=== PATIENT | female | born 1975 | race Caucasian/White ===

== ENCOUNTER → 2018-10-02 | Outpatient (CLI) | payer OTHER ==
[~2018-10-02] MED LIST: GASTROGRAFIN SOLUTION 30ML (Q9963) As Ordered ONE; ISOVUE-370 76% 100ML VIAL (Q9967) As Ordered ONE
[2018-10-02 14:58] LABS: BASO % 0.2 % (0.0-1.0); EOS # 0.2 10^3/uL (0.0-0.50); HEMATOCRIT 38.8 % (36.0-47.0); HEMOGLOBIN 12.6 g/dl (12.0-15.5); LYMPH # 3.9 10^3/uL (1.5-4.5); LYMPH % 39.1 % (24.0-44.0); MEAN CORPUSCULAR HEMOGLOBIN 28.2 pg (27.0-33.0); MEAN CORPUSCULAR HGB CONC 32.5 g/dl (32.0-36.5); MEAN CORPUSCULAR VOLUME 86.8 fl (80.0-96.0); MONO # 0.9 10^3/uL (0.0-0.8); MONO % 8.6 % (0.0-5.0); NEUTROPHILS % 49.9 % (36.0-66.0); PLATELET COUNT, AUTOMATED 384 10^3/uL (150-450); RED BLOOD COUNT 4.47 10^6/uL (4.00-5.40); WHITE BLOOD COUNT 9.9 10^3/uL (4.0-10.0)
[2018-10-02 15:32] LABS: ALBUMIN 4.2 GM/DL (3.2-5.2); ALT/SGPT 35 U/L (12-78); AMYLASE 44 U/L (25-115); BILIRUBIN,TOTAL 0.4 MG/DL (0.2-1.0); BLOOD UREA NITROGEN 12 MG/DL (7-18); CALCIUM LEVEL 8.5 MG/DL (8.5-10.1); CARBON DIOXIDE LEVEL 31 MEQ/L (21-32); CHLORIDE LEVEL 104 MEQ/L (98-107); CREATININE FOR GFR 1.05 MG/DL (0.55-1.30); GLOMERULAR FILTRATION RATE > 60.0 (>58); GLUCOSE, FASTING 87 MG/DL (70-100); LIPASE 126 U/L (73-393); SODIUM LEVEL 141 MEQ/L (136-145); TOTAL PROTEIN 7.5 GM/DL (6.4-8.2)
--- NOTE | 2018-10-02 15:43 | REP ---
Left upper quadrant sonography: History: Left upper quadrant pain. Findings: Scanning through the left upper quadrant of the abdomen demonstrates normal sized homogeneous spleen with end 9.8 cm greatest dye mention. There is no evidence of ascites. The left kidney is unremarkable measuring 10.3 x 5.0 x 5.8 cm. There is no evidence of hernia or cyst or mass in the area of the patient's reported palpable or painful area. Impression: Negative left upper quadrant sonography. Normal spleen and left kidney. No hernia or other lesion. Electronically Signed by Adams Melara MD 10/02/2018 08:13 P
== END ==
LOC: M LAB 14:29
PROVIDERS: ATTEND Physician Assistant
DX: R10.12 Left upper quadrant pain (principal)

== ENCOUNTER → 2018-10-03 | Outpatient (CLI) | payer OTHER ==
--- NOTE | 2018-10-03 11:58 | REP ---
CT abdomen and pelvis with IV and oral contrast: History: Left upper quadrant pain. CT contrast dose: 100 mL of intravenous Isovue [address] findings: Digital preliminary surgical technician radiograph is unremarkable. The lung bases are clear on axial CT images. The liver and the spleen are normal in size homogeneous in texture. There is an accessory splenule adjacent to the inferior spleen tip. No adrenal lesion is seen on either side. The gallbladder is unremarkable by CT. No pancreatic lesion is seen. The kidneys enhance symmetrically and are morphologically intact. No hydronephrosis is seen. No retroperitoneal mass or adenopathy is observed. Small and large intestinal bowel loops are normal in the abdomen and pelvis. The uterus is surgically absent. Urinary bladder is unremarkable. No adnexal abnormality is seen. A normal appendix is seen retrocecal. No abdominal wall defect is observed. No bony destructive lesion is seen. Impression: The patient is status post hysterectomy. Otherwise negative CT study of the abdomen and pelvis. Electronically Signed by Adams Melara MD 10/03/2018 02:34 P
== END ==
LOC: M RAD 09:28
PROVIDERS: ATTEND Physician Assistant
DX: R10.12 Left upper quadrant pain (principal); Z90.710 Acquired absence of both cervix and uterus
CPT/HCPCS: 74177; Q9963; Q9967

== ENCOUNTER 2019-01-14 06:36 | Emergency (ER) | payer OTHER ==
[~2019-01-14] VITALS: Ht 180.3 cm; Wt 95.5 kg
[2019-01-14] MEDS ORDERED: IBUP-1114 PO (07:44)
[2019-01-14] MEDS ORDERED: CEFD300CAP PO (07:45)
[2019-01-14 07:50] LABS: APPEARANCE, URINE HAZY (CLEAR); BACTERIA, URINE AUTO NEGATIVE (NEGATIVE); BILIRUBIN, URINE AUTO NEGATIVE (NEGATIVE); BLOOD, URINE BLOOD NEGATIVE (NEGATIVE); COLOR, URINE YELLOW (YELLOW); GLUCOSE, URINE (UA) AUTO NEGATIVE (NEGATIVE); KETONE, URINE AUTO NEGATIVE (NEGATIVE); LEUKOCYTE ESTERASE, URINE AUTO NEGATIVE (NEGATIVE); MUCUS, URINE SMALL (NEGATIVE); NITRITE, URINE AUTO NEGATIVE (NEGATIVE); PROTEIN, URINE AUTO NEGATIVE (NEGATIVE); RBC, URINE AUTO 1 /HPF (0-3); SPECIFIC GRAVITY URINE AUTO 1.021 (1.002-1.035); SQUAMOUS EPITHELIAL CELL UR AU 0 /HPF (0-6); UROBILINOGEN, URINE AUTO 0.2 mg/dL (0.0-2.0); WBC, URINE AUTO 0 /HPF (0-3)
[2019-01-14 08:21] LABS: INFLUENZA A AMPLIFICATION NEGATIVE (NEGATIVE); INFLUENZA B AMPLIFICATION NEGATIVE (NEGATIVE)
--- NOTE | 2019-01-14 09:00 | REP ---
Clinical: Cough . Comparison: None . Technique: PA and lateral. Findings: The mediastinum and cardiac silhouette are normal. The lung donahue are clear and without acute consolidation, effusion, or pneumothorax. The skeletal structures are intact and normal. Impression: 1. No acute cardiopulmonary process. Electronically Signed by João Kumar MD 01/14/2019 08:52 A
[2019-01-14] MEDS ORDERED: TESS100C PO (09:26)
[2019-01-14 09:49] VITALS: BP 118/63
== END 2019-01-14 09:53 | disposition home or self-care (01) ==
LOC: M ED 06:36
DX: J06.9 Acute upper respiratory infection, unspecified (principal); Z79.2 Long term (current) use of antibiotics; Z87.01 Personal history of pneumonia (recurrent); Z87.09 Personal history of other diseases of the respiratory system; Z98.890 Other specified postprocedural states; Z88.0 Allergy status to penicillin; Z88.1 Allergy status to other antibiotic agents; Z88.8 Allergy status to other drugs, medicaments and biological substances; Z82.5 Family history of asthma and other chronic lower respiratory diseases

== ENCOUNTER 2021-04-28 13:51 | Emergency (ER) | payer OTHER ==
[~2021-04-28] VITALS: Ht 180.3 cm; Wt 94.8 kg
[2021-04-28 13:51] VITALS: BP 117/70
[~2021-04-28 13:51] MED LIST changes: +CEFD300CAP PO; -GASTROGRAFIN SOLUTION 30ML (Q9963) As Ordered ONE; +IBUP-1114 PO; -ISOVUE-370 76% 100ML VIAL (Q9967) As Ordered ONE; +TESS100C PO
[2021-04-28] MEDS ORDERED: FLON27.5 NARES (14:07)
[2021-04-28] MEDS ORDERED: OZEM2INJ SC (14:07)
[2021-04-28] MEDS ORDERED: LEVO-95 PO (14:07)
[2021-04-28] MEDS ORDERED: DULO1CAP4 PO (14:07)
[2021-04-28] MEDS ORDERED: DULO1CAP6 PO (14:07)
[2021-04-28] MEDS ORDERED: VITATAB74 PO (14:07)
[2021-04-28] MEDS ORDERED: ALLE180T33 PO (14:07)
== END 2021-04-28 20:00 | disposition left against medical advice (07) ==
LOC: M ED 13:51
DX: Z53.29 Procedure and treatment not carried out because of patient's decision for other reasons (principal)

== ENCOUNTER → 2021-06-23 | Outpatient (REF) | payer OTHER ==
[~2021-06-23] MED LIST changes: +ALLE180T33 PO; +DULO1CAP4 PO; +DULO1CAP6 PO; +FLON27.5 NARES; +LEVO-95 PO; +OZEM2INJ SC; +VITATAB74 PO
== END ==
LOC: M LAB REF 18:05
PROVIDERS: ATTEND Family Medicine
DX: R30.0 Dysuria (principal)

== ENCOUNTER → 2021-07-21 | Outpatient (REF) | payer OTHER | LOC: M LAB REF 17:07 | PROVIDERS: ATTEND Physician Assistant | DX: N39.0 Urinary tract infection, site not specified (principal) ==

== ENCOUNTER → 2021-08-31 | Outpatient (CLI) | payer OTHER | LOC: M LABSMTC 10:06 | PROVIDERS: ATTEND Anesthesiology | DX: Z01.818 Encounter for other preprocedural examination (principal); Z11.52 Encounter for screening for COVID-19 ==

== ENCOUNTER 2021-09-03 06:41 | Day surgery (SDC) | payer OTHER ==
[~2021-09-03] VITALS: Ht 180.3 cm; Wt 86.2 kg
[~2021-09-03 06:41] MED LIST changes: +NS 1,000 ML IV ONE
[2021-09-03] MEDS ORDERED: fentaNYL 100 MCG/2 ML INJECTION (J3010) As Ordered ONE (06:45)
--- OUTSIDE RECORDS SUMMARY | 2021-09-03 06:45 | CCD | Continuity of Care Document ---
Author Marquita Julian Organization Unknown [place] [address] Phone [phone] Care Team Providers Care Tobacco Flavorer Name Role Phone Maritza Delatorre D.O. AUTM Sumeet Chao M.D. AUTM [phone] Problems Active Problems Provider Date Vitamin D deficiency AXEL Ambrocio Onset: 05/20/2021 Type 2 diabetes mellitus AXEL Ambrocio Onset: 05/20/20 Non-celiac gluten sensitivity AXEL Ambrocio Onset: Generalized anxiety disorder AXEL Ambrocio Onset: 05/19 Hypothyroidism AXEL Ambrocio Onset: 06/16/2020 Social History Type Date Description Comments Sex Unknown ETOH Use Drinks 2 Alcoholic Beverages Per Week Tobacco Use Start: Unknown Patient has never smoked Recreational Drug Use Denies Drug Use Smoking Status Reviewed: 06/23/21 Patient has never smoked Exercise Type/Frequency Walks daily Sun Exposure Uses sunscreen Seat Belt/Car Seat Always uses seat belt Allergies, Adverse Reactions, Alerts Active Allergies Criticality Reaction | Severity Comments Date Penicillin Unable to assess criticality Hives 06/13/2020 Cipro Unable to assess criticality Hives 06/13/2020 Doxycycline Unable to assess criticality Hives 06/13/2020 Latex Unable to assess criticality Contact dermatitis 06/13/2020 Gluten Unable to assess criticality joint pain, stiffness,spa sms 06/16/2020 Soy Unable to assess criticality 06/16/2020 Medications Active Medications SIG Qnty Indications Ordering Provide r Date Bactrim DS 800-160mg Tablets take one tablet by mouth every 12 hours for ten days 20tabs N39.0 Lori Santana.O. 07/21/2021 Duloxetine HCL 60mg Caps DR Bear Take One Capsule By Mouth Every Day 30caps F41.1 Lori Santana.O. 06/02/2021 Ozempic (0.25 Or 0.5 MG/Dose) 2mg/1.5ML Solution Pen-Inject 0.25 mg injection into subcutaneous tiss ue once a week for four weeks and then increase to 0.5 mg 4.5ml E11.9 Lori Walsh.OJulien 03/10/2021 Novofine 32G X 6 mm Misc to be used with ozepmic pen once a week 100units E11.9 Lori Santana. O. 03/10/2021 Freestyle [place] Lite W/Device Ki t one unit for routine monitoring of fasting blood sugar every morning 1units E11.9 Cruz SantanaOJulien 02/17/2021 Freestyle Test Strips freestyle test strips to be used with free style glucometer daily - fasting 90units Cruz SantanaOJulien 02/17/2021 Lancet Device Misc use in combination with glucometer each morning 90units Maritza vazquez D.O. 02/17/2021 Ferosul 325(65Fe) mg Tablets Take One Tablet By Mouth Every Day With Food 90tabs Cruz AlmeidaOJulien 01/01/2021 Levothyroxine Sodium 150mcg Capsul es 1 by mouth every morning 90caps Lori Santana.O. 0 12/01/2020 Vitamin D (Ergocalciferol) 1.25mg (32102 Ut) Capsules 1 capsule weekly for 12 weeks 12caps Cruz ButterfieldO. 07/01/[address] Bear 1 by mouth every day 30caps Cruz SantanaO. 06/16 Vitamin D3 125mcg (5000 Ut) Capsul es 1 by mouth every day Unknown Vitamin C 1000mg Tablets 1 by mouth every day Unknown Rae Allergy 60mg Tablets 1 by mouth every day Unknown Probiotic [id number] Capsules Unknown Flonase Allergy Relief 50mcg/Act Suspension two sprays in each nostril once daily Unk nown History Medications Macrobid 100mg Capsules take one capsule by mouth twice a day for 7 days 14caps R30.0 Maritza yip DJulienOJulien 06/23/2021 - 07/21/2021 Phenazopyridine HCL 200mg Tablets take 1 tablet by mouth every 8 hours for 3 days as directed 10tabs R30.0 Cruz WalshOJulien 06/23/2021 - 07/21/2021 Metformin HCL ER 500mg Tablets ER 24HR 2 tablet by mouth every day with your largest meal of the day 180tabs Maritza Delatorre D.O. 02/17/2021 - 02/17/2021 Metformin HCL ER 500mg Tablets ER 24HR 2 tablet by mouth twice a day with food 360tabs Cruz AbrahamOJulien 02/17/2021 - 03/10/2021 Duloxetine HCL 20mg Caps DR Part 1 capsule with 60 mg capsule by mouth every day 90caps F41.1 Cruz AbrahamOJulien 02/16/2021 - 06/02/2021 Immunizations Description No Information Available Vital Signs Date Vital Result Comment 07/21/2021 11:22am BP Systolic 130 mmHg BP Diastolic 78 mmHg Height 69.6 inches 5'9.60" Weight 202.12 lb BMI (Body Mass Index) 29.3 kg/m2 Heart Rate 104 /min Respiratory Rate 12 /min Body Temperature 98.5 F O2 % BldC Oximetry 98 % [place] Body Weight 145 lb 06/23/2021 3:34pm BP Systolic 122 mmHg BP Diastolic 82 mmHg Height 69.6 inches 5'9.60" Weight 202.00 lb BMI (Body Mass Index) 29.3 kg/m2 Heart Rate 97 /min Respiratory Rate 18 /min Body Temperature 98.7 F O2 % BldC Oximetry 987 % [place] Body Weight 145 lb Results Test Acquired Date Facility Test Result H/L Range Note Inhouse Ua 07/21/2021 Inhouse Inhouse Leukocytes + Inhouse Glucose u unable to read Laboratory test finding 07/21/[address] [address] [phone] Urine Culture FULL REPORT IN L <SEE NOTE> Normal 1 Inhouse Ua 06/23/2021 Inhouse Inhouse Leukocytes ++ Inhouse Nitrite negative Inhouse Urobilinogen + Inhouse Protein + Inhouse PH 6 Inhouse Hemoglobin +++ Inhouse Specific [place] 1.025 Inhouse Ketones + Inhouse Bilirubin negative Inhouse Glucose negative Laboratory test finding 06/23/[address] [address] [phone] Urine Culture FULL REPORT IN L <SEE NOTE> Normal 2 1 FULL REPORT IN LAB NOTES ([facility]). NO GROWTH 2 FULL REPORT IN LAB NOTES ([facility]). ORGANISM 1: ESCHERICHIA COLI COLONY COUNT 50,000 ORGANISM 1: ESCHERICHIA COLI ESCHERICHIA COLI: REACTION TRIMETHOPRIM/SULFAMETHOXAZOLE IV 160mg TMP & 800mg SMXq6h <=20 S TRIMETHOPRIM/SULFAMETHOXAZOLE PO Bactrim DS Bid <=20 S AMPICILLIN IV 500mg q6h 4 S AMPICILLIN PO 500mg q6h fasting 4 S GENTAMICIN IV 80mg q8h <=1 S NITROFURANTOIN PO 100mg BID <=16 S CEFAZOLIN IV 1gm q8h <=4 S LEVOFLOXACIN IV 500mg qd <=0.12 S LEVOFLOXACIN PO 250mg qd <=0.12 S LEVOFLOXACIN PO 500mg qd <=0.12 S TOBRAMYCIN IV 80mg q8h <=1 S CEFTRIAXONE IV 1gm q24h <=1 S CEFTAZIDIME IV 1gm q8h <=1 S AMPICILLIN/SULBACTAM IV 1.5g q6h <=2 S PIPERACILLIN/TAZOBACTAM IV 2.25 gm q6h <=4 S AZTREONAM IV 1gm q8h <=1 S ERTAPENEM IV 1gm qd <=0.5 S MEROPENEM IV 1 gm q8h <=0.25 S MEROPENEM IV 500 mg q8h <=0.25 S TIGECYCLINE IV 50mg q12h <=0.5 S CEFEPIME IV 1 gm q12h <=1 S CEFEPIME IV 2 gm q12h <=1 S EXTD BRD SPCTRM BETA LACTAMASE IV NEGATIVE FOR ESBL Procedures Date Code Description Status 07/21/2021 65665 Office/Outpatient Established Lo w MDM 20-29 Min Completed 06/23/2021 78796 Office/Outpatient Established Lo w MDM 20-29 Min Completed 05/20/2021 11170 Office/Outpatient Established Mo d MDM 30-39 Min Completed 03/10/2021 99481 Office/Outpatient Established Lo w MDM 20-29 Min Completed 02/16/2021 67894 Office/Outpatient Established Mo d MDM 30-39 Min Completed Medical Devices Description No Information Available Encounters Type Date Location Provider Dx Diagnosis Office Visit 07/21/2021 11:20a Family Medicine [facility] AXEL Ambrocio N39.0 Urinary tract infection, sit e not specified Office Visit 06/23/2021 3:30p Family Medicine [facility] Maritza Delatorre D.OJulien R30.0 Dysuria Office Visit 05/20/2021 8:45a Family Medicine [facility] AXEL Ambrocio E11.9 Type 2 diabetes mellitus wit hout complications E03.9 Hypothyroidism, unspecified F41.1 Generalized anxiety disorder E55.9 Vitamin D deficiency, unspec ified K90.41 Non-celiac gluten sensitivit y Z86.010 Personal history of colonic polyps Office Visit 03/10/2021 1:30p Family Medicine [facility] AXEL Ambrocio E11.9 Type 2 diabetes mellitus wit hout complications Office Visit 02/16/2021 4:00p [facility] AXEL Ambrocio E03.9 Hypothyroidism, unspecified R73.01 Impaired fasting glucose F41.1 Generalized anxiety disorder E55.9 Vitamin D deficiency, unspec ified K90.41 Non-celiac gluten sensitivit y Assessments Date Code Description Provider 07/21/2021 N39.0 Urinary tract infection, site no t specified AXEL Ambrocio 06/23/2021 R30.0 Dysuria Maritza yip D.OJulien 05/20/2021 E11.9 Type 2 diabetes mellitus without complications AXEL Ambrocio 05/20/2021 E03.9 Hypothyroidism, unspecified AXEL Lopez 05/20/2021 F41.1 Generalized anxiety disorder AXEL Bean 05/20/2021 E55.9 Vitamin D deficiency, unspecifie d AXEL Ambrocio 05/20/2021 K90.41 Non-celiac gluten sensitivity AXEL Burgess 05/20/2021 Z86.010 Personal history of colonic poly ps AXEL Ambrocio 03/10/2021 E11.9 Type 2 diabetes mellitus without complications AXEL Ambrocio 02/16/2021 E03.9 Hypothyroidism, unspecified AXEL Lopez 02/16/2021 R73.01 Impaired fasting glucose AXEL Ambrocio 02/16/2021 F41.1 Generalized anxiety disorder AXEL Bean 02/16/2021 E55.9 Vitamin D deficiency, unspecifie d AXEL Ambrocio 02/16/2021 K90.41 Non-celiac gluten sensitivity AXEL Burgess Plan of Treatment Future Appointment(s):* 08/24/2021 8:00 am - AXEL Ambrocio at [facility] Functional Status Description No Information Available Mental Status Description No Information Available Referrals Refer to Dr Reason for Referral Status Appt Date Sumeet Chao M.D. prior colonoscopy in 2011 hx of colonic polyps. Please re evaluate Closed 6 [facility] [address] [place] [address] [id number] [phone]
--- OUTSIDE RECORDS SUMMARY | 2021-09-03 06:45 | CCD | Continuity of Care Document ---
Author Marquita Julian Organization [place] [address] Phone [phone] Care Team Providers Care Residential Housekeeper Name Role Phone Maritza Delatorre D.O. AUTM Sumeet Chao M.D. AUTM [phone] Problems Active Problems Provider Date Vitamin D [...] 100units E11.9 Lori Santana. O. 03/10/2021 Freestyle [place] Lite W/Device Ki t one unit for [...] Santana.O. 0 12/01/2020 Vitamin D (Ergocalciferol) 1.25mg (87299 Ut) Capsules 1 capsule weekly for 12 weeks 12caps Cruz ButterfieldO. 07/01/[address] Bear 1 by mouth every day 30caps Cruz SantanaO. 06/16 Vitamin D3 125mcg (5000 Ut) Capsul es 1 by mouth every day Unknown Vitamin C 1000mg Tablets 1 by mouth every day Unknown Rae Allergy 60mg Tablets 1 by mouth every day Unknown Probiotic [id number] Capsules Unknown Flonase Allergy Relief 50mcg/Act Suspension two sprays in each nostril once daily Unk nown History Medications Macrobid 100mg Capsules take one capsule by mouth twice a day for 7 days 14caps R30.0 Maritza yip DJulienOJulien 06/23/2021 - 07/21/2021 Phenazopyridine HCL 200mg Tablets take 1 tablet by mouth every 8 hours for 3 days as directed 10tabs R30.0 Cruz WalhsOJulien 06/23/2021 - 07/21/2021 Metformin HCL ER 500mg [...] F O2 % BldC Oximetry 98 % [place] Body Weight 145 lb 06/23/2021 3:34pm BP Systolic 122 mmHg BP Diastolic 82 mmHg Height 69.6 inches 5'9.60" Weight 202.00 lb BMI (Body Mass Index) 29.3 kg/m2 Heart Rate 97 /min Respiratory Rate 18 /min Body Temperature 98.7 F O2 % BldC Oximetry 987 % [place] Body Weight 145 lb Results Test Acquired Date Facility Test Result H/L Range Note Inhouse Ua 07/21/2021 Inhouse Inhouse Leukocytes + Inhouse Glucose u unable to read Laboratory test finding 07/21/[address] [address] [phone] Urine Culture FULL REPORT IN L <SEE NOTE> Normal 1 Inhouse Ua 06/23/2021 Inhouse Inhouse Leukocytes ++ Inhouse Nitrite negative Inhouse Urobilinogen + Inhouse Protein + Inhouse PH 6 Inhouse Hemoglobin +++ Inhouse Specific [place] 1.025 Inhouse Ketones + Inhouse Bilirubin negative Inhouse Glucose negative Laboratory test finding 06/23/[address] [address] [phone] Urine Culture FULL REPORT IN L <SEE [...] ESBL Procedures Date Code Description Status 07/21/2021 64184 Office/Outpatient Established Lo w MDM 20-29 Min Completed 06/23/2021 95893 Office/Outpatient Established Lo w MDM 20-29 Min Completed 05/20/2021 41978 Office/Outpatient Established Mo d MDM 30-39 Min Completed 03/10/2021 24468 Office/Outpatient Established Lo w MDM 20-29 Min Completed 02/16/2021 72933 Office/Outpatient Established Mo d MDM 30-39 Min Completed Medical Devices Description No Information Available Encounters Type Date Location Provider Dx Diagnosis Office Visit 07/21/2021 11:20a Family Medicine [facility] AXEL Ambrocio N39.0 Urinary tract infection, sit e not specified Office Visit 06/23/2021 3:30p Family Medicine [facility] Maritza Delatorre D.OJulien R30.0 Dysuria Office Visit 05/20/2021 8:45a Family Medicine [facility] AXEL Ambrocio E11.9 Type 2 diabetes mellitus wit hout complications E03.9 Hypothyroidism, unspecified F41.1 Generalized anxiety disorder E55.9 Vitamin D deficiency, unspec ified K90.41 Non-celiac gluten sensitivit y Z86.010 Personal history of colonic polyps Office Visit 03/10/2021 1:30p Family Medicine [facility] AXEL Ambrocio E11.9 Type 2 diabetes mellitus wit hout complications Office Visit 02/16/2021 4:00p [facility] AXEL Ambrocio E03.9 Hypothyroidism, unspecified R73.01 Impaired [...] 08/24/2021 8:00 am - AXEL Ambrocio at [facility] Functional Status Description No Information Available Mental Status Description No Information Available Referrals Refer to Dr Reason for Referral Status Appt Date Sumeet Chao M.D. prior colonoscopy in 2011 hx of colonic polyps. Please re evaluate Closed 6 [facility] [address] [place] [address] [id number] [phone]
--- OUTSIDE RECORDS SUMMARY | 2021-09-03 06:45 | CCD | Continuity of Care Document ---
Author Author Marquita LEA F.N.P. Organization Unknown Address [address], [address] [place] [address] Phone [phone] Care Team Providers Care Vegetable Trimmer Name Role Phone Harpal Leonard MD AUTM [phone] Problems Description No Information Available Social History Type Date Description Comments Sex Unknown ETOH Use Social Drinker Tobacco Use Start: Unknown Patient has never smoked Sun Exposure moderate amount of sun exposure Sun Exposure Tanning bed - Has used in past. No longer using. Sun Exposure Has never experienced blistering from sunburns Sun Exposure Uses > 30 SPF Allergies, Adverse Reactions, Alerts Active Allergies Criticality Reaction | Severity Comments Date Penicillin V Unable to assess criticality 03/24/2020 sulfa Unable to assess criticality 03/24/2020 Doxycycline Unable to assess criticality 03/24/2020 Medications Active Medications SIG Qnty Indications Ordering Provide r Date Cymbalta Unknown Synthroid Unknown Vitamin D Unknown Rae Allergy Unknown 0 Ozempic (0.25 Or 0.5 MG/Dose) Unknow n Immunizations Description No Information Available Vital Signs Date Vital Result Comment 06/16/2021 8:49am Weight 198.00 lb Respiratory Rate 15 /min Height 71 inches 5'11" BMI (Body Mass Index) 27.6 kg/m2 09/15/2020 1:04pm Heart Rate 78 /min Body Temperature 96.8 F Respiratory Rate 18 /min Results Description No Information Available Procedures Date Code Description Status 06/16/2021 26177 Office/Outpatient Established Mo d MDM 30-39 Min Completed Medical Devices Description No Information Available Encounters Type Date Location Provider Dx Diagnosis Office Visit 06/16/2021 8:45a Main Office Emily Lea, F.N.P. D22.5 Melanocytic nevi of trunk D22.30 Melanocytic nevi of unspecif ied part of face D22.71 Melanocytic nevi of right lo wer limb, including hip D22.72 Melanocytic nevi of left low er limb, including hip D22.61 Melanocytic nevi of right up per limb, including shoulder D22.62 Melanocytic nevi of left upp er limb, including shoulder L82.1 Other seborrheic keratosis Z12.83 Encounter for screening for malignant neoplasm of skin Assessments Date Code Description Provider 06/16/2021 D22.5 Melanocytic nevi of trunk Nomi Lea, F.N.P. 06/16/2021 D22.30 Melanocytic nevi of unspecified part of face Emily Lea, F.N.P. 06/16/2021 D22.71 Melanocytic nevi of right lower limb, including hip Emily Lea, F.N.P. 06/16/2021 D22.72 Melanocytic nevi of left lower l imb, including hip Emily Gordon'debo, F.N.P. 06/16/2021 D22.61 Melanocytic nevi of right upper limb, including shoulder Emily Gordon'debo, F.N.P. 06/16/2021 D22.62 Melanocytic nevi of left upper l imb, including shoulder Emily Lea, F.N.P. 06/16/2021 L82.1 Other seborrheic keratosis Allie Lea, F.N.P. 06/16/2021 Z12.83 Encounter for screening for james gnant neoplasm of skin Emily Lea, F.N.P. Plan of Treatment Future Appointment(s):* 06/14/2022 9:15 am - Emily Lea, F.N.P. at Main Office 06/16/2021 - Emily Lea, F.N.P.* D22.5 Melanocytic nevi of trunk* Comments:* Nevi on trunk appear healthy. Monitor for changes. Salas angiomas - reassurance. Sun protection and sunscreen use discussed. Literature given on how to perform monthly self skin exam. Should any moles change in shape or color, itch, bleed or burn, pt will contact office for evaluation sooner than their interval appointment. * D22.30 Melanocytic nevi of unspecified part of face* Comments:* Nevi located on face appear healthy. Monitor for changes. * D22.71 Melanocytic nevi of right lower limb, including hip* Comments:* Nevi located on R leg appear healthy. Monitor for changes. Should any moles change in shape or color, itch, bleed or burn patient instructed to call office for evaluation sooner than their interval appointment. * D22.72 Melanocytic nevi of left lower limb, including hip* Comments:* Nevi L leg appear healthy. Monitor for changes. Should any moles change in shape or color, itch, bleed or burn, patient instructed to contact office for ev aluation sooner than their interval appointment. * D22.61 Melanocytic nevi of right upper limb, including shoulder* Comments:* Nevi located on R arm appears healthy. Monitor for changes. Should any moles change in shape or color, itch, bleed or burn patient instructed to call office for evaluation sooner than their interval appointment. * D22.62 Melanocytic nevi of left upper limb, including shoulder* Comments:* Nevi located on L arm appears healthy. Monitor for changes. Should any moles change in shape or color, itch, bleed or burn patient instructed to call office for evaluation sooner than their interval appointment. * L82.1 Other seborrheic keratosis* Comments:* ReassuranceDiscussed seborrheic keratoses are benign warty growths that appear with age and more most likely will appear over time. Discussed if ever becomes irritated to call for a removal appointment. * Z12.83 Encounter for screening for malignant neoplasm of skin* Comments:* See above. * Follow up:* Yearly/PRN - [facility] Functional Status Description No Information Available Mental Status Description No Information Available Referrals Description No Information Available
[2021-09-03] MEDS ORDERED: LIDOCAINE 2% INJ 100 MG/5 ML SYRINGE As Ordered ONE (06:46)
[2021-09-03] MEDS ORDERED: propofoL 200 MG/20 ML VIAL As Ordered ONE (06:46)
--- OUTSIDE RECORDS SUMMARY | 2021-09-03 06:46 | CCD | Continuity of Care Document ---
Author Author Marquita DELATORRE Organization Unknown Address [email or web address] [place] [address] Phone [phone] Care Team Providers Care Curriculum Specialist Name Role Phone Maritza Delatorre D.O. AUTM Sumeet Chao M.D. AUTM [phone] Problems Active Problems Provider Date Vitamin D deficiency AXEL Ambrocio Onset: 05/20/2021 Type 2 diabetes mellitus AXEL Ambrocio Onset: 05/20/20 Non-celiac gluten sensitivity AXEL Ambrocio Onset: Generalized anxiety disorder AXEL mAbrocio Onset: 05/19 Hypothyroidism AXEL Ambrocio Onset: 06/16/2020 [...] SIG Qnty Indications Ordering Provide r Date Phenazopyridine HCL 200mg Tablets take 1 tablet by mouth every 8 hours for 3 days as directed 10tabs R30.0 Lori Walsh.OJulien 06/23/2021 Macrobid 100mg Capsules take one capsule by mouth twice a day for 7 days 14caps R30.0 Cruz DoradoOJulien 06/23/2021 Duloxetine HCL 60mg Caps DR Bear Take One Capsule By Mouth Every Day 30caps F41.1 Lori Santana.O. 06/02/2021 Ozempic (0.25 Or 0.5 MG/Dose) 2mg/1.5ML Solution Pen-Inject 0.25 mg injection into subcutaneous tiss ue once a week for four weeks and then increase to 0.5 mg 4.5ml E11.9 Cruz WalshOJulien 03/10/2021 Novofine 32G X 6 mm Misc to be used with ozepmic pen once a week 100units E11.9 Cruz Santana OJulien 03/10/2021 Freestyle [place] Lite W/Device Ki t one unit for routine monitoring of fasting blood sugar every morning 1units E11.9 Cruz SantanaOJulien 02/17/2021 Freestyle Test Strips freestyle test strips to be used with free style glucometer daily - fasting 90units Lori Santana.OJulien 02/17/2021 Lancet Device Misc use in combination with glucometer each morning 90units Cruz GreenOJulien 02/17/2021 Ferosul 325(65Fe) mg Tablets Take One Tablet By Mouth Every Day With Food 90tabs Lori Almeida.OJulien 01/01/2021 Levothyroxine Sodium 150mcg Capsul es 1 by mouth every morning 90caps Maritza Delatorre D.O. 0 12/01/2020 Vitamin D (Ergocalciferol) 1.25mg (38505 Ut) Capsules 1 capsule weekly for 12 weeks 12caps Cruz ButterfieldOJulien 07/01/[address] Bear 1 by mouth every day 30caps Cruz SantanaOJulien 06/16 Vitamin D3 125mcg (5000 Ut) Capsul es 1 by mouth every day Unknown Vitamin C 1000mg Tablets 1 by mouth every day Unknown Rae Allergy 60mg Tablets 1 by mouth every day Unknown Probiotic [id number] Capsules Unknown Flonase Allergy Relief 50mcg/Act Suspension two sprays in each nostril once daily Unk nown History Medications Metformin HCL ER 500mg Tablets ER 24HR 2 tablet by mouth every day with your largest meal of the day 180tabs Maritza Delatorre D.O. 02/17/2021 - 02/17/2021 Metformin HCL ER 500mg Tablets ER 24HR 2 tablet by mouth twice a day with food 360tabs Maritza Toure D.O. 02/17/2021 - 03/10/2021 Duloxetine HCL 20mg Mary Bear 1 capsule with 60 mg capsule by mouth every day 90caps F41.1 Maritza Touer D.O. 02/16/2021 - 06/02/2021 Immunizations Description No Information Available Vital Signs Date Vital Result Comment 06/23/2021 3:34pm BP Systolic 122 mmHg BP Diastolic 82 mmHg Height 69.6 inches 5'9.60" Weight 202.00 lb BMI (Body Mass Index) 29.3 kg/m2 Heart Rate 97 /min Respiratory Rate 18 /min Body Temperature 98.7 F O2 % BldC Oximetry 987 % [place] Body Weight 145 lb 05/20/2021 8:47am BP Systolic 110 mmHg BP Diastolic 60 mmHg Height 69.6 inches 5'9.60" Weight 206.00 lb BMI (Body Mass Index) 29.9 kg/m2 Heart Rate 67 /min Respiratory Rate 14 /min Body Temperature 97.0 F O2 % BldC Oximetry 98 % [place] Body Weight 145 lb Results Test Acquired Date Facility Test Result H/L Range Note Inhouse Ua 06/23/2021 Inhouse Inhouse Leukocytes ++ Inhouse Nitrite negative Inhouse Urobilinogen + Inhouse Protein + Inhouse PH 6 Inhouse Hemoglobin +++ Inhouse Specific [place] 1.025 Inhouse Ketones + Inhouse Bilirubin negative Inhouse Glucose negative Laboratory test finding 06/23/2021 [place] [address] [phone] Urine Culture FULL REPORT IN L <SEE NOTE> Normal 1 1 FULL REPORT IN LAB NOTES (eC [...] FOR ESBL Procedures Date Code Description Status 06/23/2021 04063 Office/Outpatient Established Lo w MDM 20-29 Min Completed 05/20/2021 46187 Office/Outpatient Established Mo d MDM 30-39 Min Completed 03/10/2021 95517 Office/Outpatient Established Lo w MDM 20-29 Min Completed 02/16/2021 58584 Office/Outpatient Established Mo d MDM 30-39 Min Completed Medical Devices Description No Information Available Encounters Type Date Location Provider Dx Diagnosis Office Visit 06/23/2021 3:30p [facility] Maritza Delatorre D.O. R30.0 Dysuria Office Visit 05/20/2021 8:45a [facility] AXEL Ambrocio E11.9 Type 2 diabetes mellitus wit hout complications E03.9 Hypothyroidism, unspecified F41.1 Generalized anxiety disorder E55.9 Vitamin D deficiency, unspec ified K90.41 Non-celiac gluten sensitivit y Z86.010 Personal history of colonic polyps Office Visit 03/10/2021 1:30p [facility] AXEL Ambrocio E11.9 Type 2 diabetes mellitus wit hout complications Office Visit 02/16/2021 4:00p [facility] AXEL Ambrocio E03.9 Hypothyroidism, unspecified R73.01 Impaired fasting glucose F41.1 Generalized anxiety disorder E55.9 Vitamin D deficiency, unspec ified K90.41 Non-celiac gluten sensitivit y Assessments Date Code Description Provider 06/23/2021 R30.0 Dysuria Maritza yip D.O. 05/20/2021 E11.9 Type 2 diabetes mellitus without complications AXEL Ambrocio 05/20/2021 E03.9 Hypothyroidism, unspecified AXEL Lopez 05/20/2021 F41.1 Generalized anxiety disorder AXEL Bean 05/20/2021 E55.9 Vitamin D deficiency, unspecifie d AXEL Ambrocio 05/20/2021 K90.41 Non-celiac gluten sensitivity [place] AXEL Mariscal 05/20/2021 Z86.010 Personal history of colonic poly ps AXEL Ambrocio 03/10/2021 E11.9 Type 2 diabetes mellitus without complications AXEL Ambrocio 02/16/2021 E03.9 Hypothyroidism, unspecified AXEL Lopez 02/16/2021 R73.01 Impaired fasting glucose AXEL Ambrocio 02/16/2021 F41.1 Generalized anxiety disorder AXEL Bean 02/16/2021 E55.9 Vitamin D deficiency, unspecifie d AXEL Ambrocio 02/16/2021 K90.41 Non-celiac gluten sensitivity [place] AXEL Mariscal Plan of Treatment Future Appointment(s):* 08/24/2021 8:00 am - AXEL Ambrocio at [facility] Functional Status Description No Information Available Mental Status Description No Information Available Referrals Refer to Reason for Referral Status Appt Date Sumeet Chao M.D. prior colonoscopy in 2011 ne hx of colonic polyps. Please re evaluate Closed [address] [facility] [address] [place] [address] [phone]
--- OUTSIDE RECORDS SUMMARY | 2021-09-03 06:46 | CCD | Continuity of Care Document ---
Author Author Marquita DELATORRE Organization Unknown Address [address] [place] [address] Phone [phone] Care Team Providers Care Bulldogger Name Role Phone Maritza Delatorre D.O. AUTM Sumeet Chao M.D. AUTM [phone] Problems Active Problems Provider Date Vitamin D [...] 100units E11.9 Cruz Santana OJulien 03/10/2021 Freestyle [place] Lite W/Device Ki t one unit for [...] D.O. 0 12/01/2020 Vitamin D (Ergocalciferol) 1.25mg (83709 Ut) Capsules 1 capsule weekly for 12 weeks 12caps Cruz ButterfieldOJulien 07/01/[address] Bear 1 by mouth every day 30caps Cruz SantanaOJulien 06/16 Vitamin D3 125mcg (5000 Ut) Capsul es 1 by mouth every day Unknown Vitamin C 1000mg Tablets 1 by mouth every day Unknown Rae Allergy 60mg Tablets 1 by mouth every day Unknown Probiotic [id number] Capsules Unknown Flonase Allergy Relief 50mcg/Act Suspension [...] by mouth every day 90caps F41.1 Maritza Toure D.O. 02/16/2021 - 06/02/2021 Immunizations Description No Information Available Vital Signs Date Vital Result Comment 06/23/2021 3:34pm BP Systolic 122 mmHg BP Diastolic 82 mmHg Height 69.6 inches 5'9.60" Weight 202.00 lb BMI (Body Mass Index) 29.3 kg/m2 Heart Rate 97 /min Respiratory Rate 18 /min Body Temperature 98.7 F O2 % BldC Oximetry 987 % [place] Body Weight 145 lb 05/20/2021 8:47am BP Systolic 110 mmHg BP Diastolic 60 mmHg Height 69.6 inches 5'9.60" Weight 206.00 lb BMI (Body Mass Index) 29.9 kg/m2 Heart Rate 67 /min Respiratory Rate 14 /min Body Temperature 97.0 F O2 % BldC Oximetry 98 % [place] Body Weight 145 lb Results Test Acquired Date Facility Test Result H/L Range Note Inhouse Ua 06/23/2021 Inhouse Inhouse Leukocytes ++ Inhouse Nitrite negative Inhouse Urobilinogen + Inhouse Protein + Inhouse PH 6 Inhouse Hemoglobin +++ Inhouse Specific [place] 1.025 Inhouse Ketones + Inhouse Bilirubin negative Inhouse Glucose negative Procedures Date Code Description Status 06/23/2021 98494 Office/Outpatient Established Lo w MDM 20-29 Min Completed 05/20/2021 78144 Office/Outpatient Established Mo d MDM 30-39 Min Completed 03/10/2021 47112 Office/Outpatient Established Lo w MDM 20-29 Min Completed 02/16/2021 53683 Office/Outpatient Established Mo d MDM 30-39 Min Completed Medical Devices Description No Information Available Encounters Type Date Location Provider Dx Diagnosis Office Visit 06/23/2021 3:30p [facility] Maritza Delatorre D.O. R30.0 Dysuria Office Visit 05/20/2021 8:45a [facility] AXEL Ambrocio E11.9 Type 2 diabetes mellitus wit hout complications E03.9 Hypothyroidism, unspecified F41.1 Generalized anxiety disorder E55.9 Vitamin D deficiency, unspec ified K90.41 Non-celiac gluten sensitivit y Z86.010 Personal history of colonic polyps Office Visit 03/10/2021 1:30p [facility] AXEL Ambrocio E11.9 Type 2 diabetes mellitus wit hout complications Office Visit 02/16/2021 4:00p [facility] AXEL Ambrocio E03.9 Hypothyroidism, unspecified R73.01 Impaired fasting glucose F41.1 Generalized anxiety disorder E55.9 Vitamin D deficiency, unspec ified K90.41 Non-celiac gluten sensitivit y Assessments Date Code Description Provider 06/23/2021 R30.0 Dysuria Maritza yip DJulienOJulien 05/20/2021 E11.9 Type 2 diabetes mellitus without complications AXEL Ambrocio 05/20/2021 E03.9 Hypothyroidism, unspecified [place] AXEL Virk 05/20/2021 F41.1 Generalized anxiety disorder AXEL Bean 05/20/2021 E55.9 Vitamin D deficiency, unspecifie d AXEL Ambrocio 05/20/2021 K90.41 Non-celiac gluten sensitivity [place] AXEL Mariscal 05/20/2021 Z86.010 Personal history of colonic poly ps AXEL Ambrocio 03/10/2021 E11.9 Type 2 diabetes mellitus without complications AXEL Ambrocio 02/16/2021 E03.9 Hypothyroidism, unspecified [place] AXEL Virk 02/16/2021 R73.01 Impaired fasting glucose AXEL Ambrocio 02/16/2021 F41.1 Generalized anxiety disorder [place] AXEL Guan 02/16/2021 E55.9 Vitamin D deficiency, unspecifie d AXEL Ambrocio 02/16/2021 K90.41 Non-celiac gluten sensitivity Dc AXEL Mariscal Plan of Treatment Future Appointment(s):* 08/24/2021 8:00 am - AXEL Ambrocio at [facility] Functional Status Description No Information Available Mental Status Description No Information Available Referrals Refer to Dr Reason for Referral Status Appt Date Sumeet Chao M.D. prior colonoscopy in 2011 hx of colonic polyps. Please re evaluate Closed [address] [facility] [address] [place] [address] [phone]
--- OUTSIDE RECORDS SUMMARY | 2021-09-03 06:46 | CCD | Continuity of Care Document ---
Author Author Marquita SANTANA [place] Organization Unknown Address [address] [facility], [address] [place] [address] Phone [phone] Care Team Providers Care Table Machine Operator Name Role Phone Eyad Ball AUTM [phone] Maritza Delatorre D.O. AUTM Problems Description No Information Available Social History Type Date Description Comments Sex Unknown ETOH Use 1-2 A Week Tobacco Use Start: Unknown Denies Smoking Recreational Drug Use Denies Drug Use Allergies, Adverse Reactions, Alerts Active Allergies Criticality Reaction | Severity Comments Date Penicillin V Unable to assess criticality Contact dermatitis, Hives 06/08/2021 Latex Unable to assess criticality Contact dermatitis 06/08/2021 Cipro Unable to assess criticality Hives 06/08/2021 Sulfa Unable to assess criticality Hives 06/08/2021 Doxycycline Unable to assess criticality Contact dermatitis, Hives 06/08/2021 Medications Active Medications SIG Qnty Indications Ordering Provide r Date Ozempic (0.25 Or 0.5 MG/Dose) 2mg/1.5ML Solution Pen-Inject 0.5 mg. once a week Unknown Synthroid 150mcg Tablets 1 by mouth every day Unknown Cymbalta 60mg Caps DR Part take one capsule by mouth once daily Unknown Rae Allergy 180mg Tablets 1 by mouth every day Unknown Flonase Sensimist 27 .5mcg/[place] Suspension 2 sprays per nostril once daily Unknown Multi Vitamin Tablets 1 by mouth every day Unknown Vitamin D 50mcg (2000 Ut) Tablets 1 by mouth every day Unknown Vitamin C 500mg Capsules 1 tab by mouth once a day Unknown Immunizations Description No Information Available Vital Signs Date Vital Result Comment 06/08/2021 1:08pm BP Systolic 99 mmHg BP Diastolic 67 mmHg Body Temperature 98.6 F Height 71 inches 5'11" Weight 200.38 lb BMI (Body Mass Index) 27.9 kg/m2 [place] Body Weight 155 lb Weight 90.890 kg BSA (Body Surface Area) 2.11 m2 Results Description No Information Available Procedures Description No Information Available Medical Devices Description No Information Available Encounters Description No Information Available Assessments Date Code Description Provider 06/08/2021 Z86.010 Personal history of colonic poly ps AXEL Singer 06/08/2021 K59.00 Constipation, unspecified AXEL Singer 06/08/2021 K64.9 Unspecified hemorrhoids AXEL Orellana 06/08/2021 K21.00 Gastro-esophageal re flux disease with esophagitis, without bleeding AXEL Singer Plan of Treatment No Information Available Functional Status Description No Information Available Mental Status Description No Information Available Referrals Refer to Reason for Referral Status Appt Date Sumeet Chao JR, MD COLONOSCOPY Scheduled [address] [place] [address] [phone]
--- OUTSIDE RECORDS SUMMARY | 2021-09-03 06:46 | CCD | Continuity of Care Document ---
Author Author Marquita DELATORRE Organization Unknown Address [address] [place] [address] Phone [phone] Care Team Providers Care Child Development Instructor Name Role Phone Maritza Delatorre D.O. AUTM [phone] Sumeet Chao M.D. AUTM [phone] Problems Active Problems Provider Date Vitamin D [...] 100units E11.9 Cruz Santana OJulien 03/10/2021 Freestyle [place] Lite W/Device Ki t one unit for [...] D.O. 0 12/01/2020 Vitamin D (Ergocalciferol) 1.25mg (55685 Ut) Capsules 1 capsule weekly for 12 weeks 12caps Cruz ButterfieldOJulien 07/01/[address] Bear 1 by mouth every day 30caps Cruz SantanaOJulien 06/16 Vitamin D3 125mcg (5000 Ut) Capsul es 1 by mouth every day Unknown Vitamin C 1000mg Tablets 1 by mouth every day Unknown Rae Allergy 60mg Tablets 1 by mouth every day Unknown Probiotic [id number] Capsules Unknown Flonase Allergy Relief 50mcg/Act Suspension [...] F O2 % BldC Oximetry 987 % [place] Body Weight 145 lb 05/20/2021 8:47am BP Systolic 110 mmHg BP Diastolic 60 mmHg Height 69.6 inches 5'9.60" Weight 206.00 lb BMI (Body Mass Index) 29.9 kg/m2 Heart Rate 67 /min Respiratory Rate 14 /min Body Temperature 97.0 F O2 % BldC Oximetry 98 % [place] Body Weight 145 lb Results Test Acquired Date Facility Test Result H/L Range Note Inhouse Ua 06/23/2021 Inhouse Inhouse Leukocytes ++ Inhouse Nitrite negative Inhouse Urobilinogen + Inhouse Protein + Inhouse PH 6 Inhouse Hemoglobin +++ Inhouse Specific [place] 1.025 Inhouse Ketones + Inhouse Bilirubin negative Inhouse Glucose negative Procedures Date Code Description Status 06/23/2021 17290 Office/Outpatient Established Lo w MDM 20-29 Min Completed 05/20/2021 37300 Office/Outpatient Established Mo d MDM 30-39 Min Completed 03/10/2021 60392 Office/Outpatient Established Lo w MDM 20-29 Min Completed 02/16/2021 28743 Office/Outpatient Established Mo d MDM 30-39 Min Completed Medical Devices Description No Information Available Encounters Type Date Location Provider Dx Diagnosis Office Visit 06/23/2021 3:30p [facility] Maritza Delatorre D.O. R30.0 Dysuria Office Visit 05/20/2021 8:45a [facility] AXEL Ambrocio E11.9 Type 2 diabetes mellitus wit hout complications E03.9 Hypothyroidism, unspecified F41.1 Generalized anxiety disorder E55.9 Vitamin D deficiency, unspec ified K90.41 Non-celiac gluten sensitivit y Z86.010 Personal history of colonic polyps Office Visit 03/10/2021 1:30p [facility] AXEL Ambrocio E11.9 Type 2 diabetes mellitus wit hout complications Office Visit 02/16/2021 4:00p [facility] AXEL Ambrocio E03.9 Hypothyroidism, unspecified R73.01 Impaired [...] AXEL Ambrocio 02/16/2021 K90.41 Non-celiac gluten sensitivity Tx AXEL Mariscal Plan of Treatment Future Appointment(s):* 08/24/2021 8:00 am - AXEL Ambrocio at [facility] Functional Status Description No Information Available Mental Status Description No Information Available Referrals Refer to Dr Reason for Referral Status Appt Date Sumeet Chao M.D. prior colonoscopy in 2011 hx of colonic polyps. Please re evaluate Closed [address] [facility] [address] [place] [address] [phone]
--- OUTSIDE RECORDS SUMMARY | 2021-09-03 06:46 | CCD | Continuity of Care Document ---
Author Author Marquita DELATORRE Organization Unknown Address [address] [place] [address] Phone [phone] Care Team Providers Care Steward/Stewardess Dining Room Name Role Phone Maritza Delatorre D.O. AUTM [phone] Sumeet Chao M.D. AUTM [phone] Problems Active Problems Provider Date Vitamin D [...] 100units E11.9 Cruz Santana OJulien 03/10/2021 Freestyle [place] Lite W/Device Ki t one unit for [...] D.O. 0 12/01/2020 Vitamin D (Ergocalciferol) 1.25mg (58868 Ut) Capsules 1 capsule weekly for 12 weeks 12caps Cruz ButterifeldOJulien 07/01/[address] Bear 1 by mouth every day 30caps Cruz SantanaOJulien 06/16 Vitamin D3 125mcg (5000 Ut) Capsul es 1 by mouth every day Unknown Vitamin C 1000mg Tablets 1 by mouth every day Unknown Rae Allergy 60mg Tablets 1 by mouth every day Unknown Probiotic [id number] Capsules Unknown Flonase Allergy Relief 50mcg/Act Suspension [...] D.O. 02/17/2021 - 03/10/2021 Duloxetine HCL 20mg Caps DR Bear 1 capsule with 60 mg capsule [...] F O2 % BldC Oximetry 987 % [place] Body Weight 145 lb 05/20/2021 8:47am BP Systolic 110 mmHg BP Diastolic 60 mmHg Height 69.6 inches 5'9.60" Weight 206.00 lb BMI (Body Mass Index) 29.9 kg/m2 Heart Rate 67 /min Respiratory Rate 14 /min Body Temperature 97.0 F O2 % BldC Oximetry 98 % [place] Body Weight 145 lb Results Description No Information Available Procedures Date Code Description Status 06/23/2021 14587 Office/Outpatient Established Lo w MDM 20-29 Min Completed 05/20/2021 70547 Office/Outpatient Established Mo d MDM 30-39 Min Completed 03/10/2021 88537 Office/Outpatient Established Lo w MDM 20-29 Min Completed 02/16/2021 41681 Office/Outpatient Established Mo d MDM 30-39 Min Completed Medical Devices Description No Information Available Encounters Type Date Location Provider Dx Diagnosis Office Visit 06/23/2021 3:30p [facility] Maritza Delatorre D.O. R30.0 Dysuria Office Visit 05/20/2021 8:45a [facility] AXEL Ambrocio E11.9 Type 2 diabetes mellitus wit hout complications E03.9 Hypothyroidism, unspecified F41.1 Generalized anxiety disorder E55.9 Vitamin D deficiency, unspec ified K90.41 Non-celiac gluten sensitivit y Z86.010 Personal history of colonic polyps Office Visit 03/10/2021 1:30p [facility] AXEL Ambrocio E11.9 Type 2 diabetes mellitus wit hout complications Office Visit 02/16/2021 4:00p [facility] AXEL Ambrocio E03.9 Hypothyroidism, unspecified R73.01 [...] AXEL Ambrocio 02/16/2021 K90.41 Non-celiac gluten sensitivity [place] AXEL Mariscal Plan of Treatment Future Appointment(s):* 08/24/2021 8:00 am - AXEL Ambrocio at [facility] 06/23/2021 - Maritza Delatorre D.O.* R30.0 Dysuria* New Medication:* Macrobid 100 mg - take one capsule by mouth twice a day for 7 days * Phenazopyridine HCL 200 mg - take 1 tablet by mouth every 8 hours for 3 days as directed * New Labs:* Urine Culture, Ordered: 06/23/21 * Inhouse Ua, Ordered: 06/23/21 * Comments:* I will start an antibiotic and medication for bladder spasm Functional Status Description No Information Available Mental Status Description No Information Available Referrals Refer to Reason for Referral Status Appt Date Sumeet Chao M.D. prior colonoscopy in 2011 ar hx of colonic polyps. Please re evaluate Closed [address] [place] [address] [phone]
--- OUTSIDE RECORDS SUMMARY | 2021-09-03 06:46 | CCD | Continuity of Care Document ---
Author Author Marquita SANTANA [place] Organization Unknown Address [address] [facility], [address] [place] [address] Phone [phone] Care Team Providers Care Meat Washer Name Role Phone Eyad Ball AUTM [phone] Maritza Delatorre D.O. AUTM Problems Description No [...] mouth every day Unknown Flonase Sensimist 27 .5mcg/[place] Suspension 2 sprays per nostril once daily Unknown Multi Vitamin Tablets 1 by mouth every day Unknown Vitamin D 50mcg (1999 Ut) Tablets 1 by mouth every day Unknown Vitamin C 500mg Capsules 1 tab by mouth once a day Unknown Immunizations Description No Information Available Vital Signs Date Vital Result Comment 06/08/2021 1:08pm BP Systolic 99 mmHg BP Diastolic 67 mmHg Body Temperature 98.6 F Height 71 inches 5'11" Weight 200.38 lb BMI (Body Mass Index) 27.9 kg/m2 [place] Body Weight 155 lb Weight 90.890 kg BSA (Body Surface Area) 2.11 m2 Results Description No Information Available Procedures Date Code Description Status 06/08/2021 24624 Office/Outpatient New Moderate M DM 45-59 Minutes Completed Medical Devices Description No Information Available Encounters Type Date Location Provider Dx Diagnosis Office Visit 06/08/2021 1:00p [facility] AXEL Bruce Z86.010 Personal history of colonic polyps K59.00 Constipation, unspecified K64.9 Unspecified hemorrhoids K21.00 Gastro-esophageal reflux dis with esophagitis, without bleed Assessments Date Code Description Provider 06/08/2021 Z86.010 Personal history of colonic poly ps AXEL Singer 06/08/2021 K59.00 Constipation, unspecified AXEL Singer 06/08/2021 K64.9 Unspecified hemorrhoids AXEL Orellana 06/08/2021 K21.00 Gastro-esophageal re flux disease with esophagitis, without bleeding AXEL Singer Plan of Treatment Future Appointment(s):* 08/03/2021 10:30 am - AXEL Singer at [facility] * 07/24/2021 7:30 am - Gilles Hansen M.D. at [facility] 06/08/2021 - AXEL Singer* Z86.010 Personal history of colonic polyps * K59.00 Constipation, unspecified * K64.9 Unspecified hemorrhoids * K21.00 Gastro-esophageal reflux disease with esophagitis, without bleeding Functional Status Description No Information Available Mental Status Description No Information Available Referrals Refer to Reason for Referral Status Appt Date Sumeet Chao JR, MD COLONOSCOPY Scheduled [address] [place] [address] [phone]
--- OUTSIDE RECORDS SUMMARY | 2021-09-03 06:46 | CCD ---
Author Author [facility] Address Unknown Phone Unavailable Care Team Providers Care Cash Applications Representative Name Role Phone KLEVERBER, MURIEL DO Unavailable Unavailable ARIADNA-JEAN-PIERRE, MURIEL DO Unavailable Unavailable ARIADNA-JEAN-PIERRE, MURIEL DO Unavailable Unavailable ARIADNA-JEAN-PIERRE, MURIEL DO Unavailable Unavailable ARIADNA-JEAN-PIERRE, MURIEL DO Unavailable Unavailable ARIADNA-JEAN-PIERRE, MURIEL DO Unavailable Unavailable ARIADNA-JEAN-PIERRE, MURIEL DO Unavailable Unavailable ARIADNA-JEAN-PIERRE, MURIEL DO Unavailable Unavailable ARIADNA-JEAN-PIERRE, MURIEL DO Unavailable Unavailable ARIADNA-JEAN-PIERRE, MURIEL DO Unavailable Unavailable ARIADNA-JEAN-PIERRE, MURIEL DO Unavailable Unavailable ARIADNA-JEAN-PIERRE, MURIEL DO Unavailable Unavailable ARIADNA-JEAN-PIERRE, MURIEL DO Unavailable Unavailable ARIADNA-JEAN-PIERRE, MURIEL DO Unavailable Unavailable ARIADNA-JEAN-PIERRE, MURIEL DO Unavailable Unavailable ARIADNA-JEAN-PIERRE, MURIEL DO Unavailable Unavailable ARIADNA-JEAN-PIERRE, MURIEL DO Unavailable Unavailable ARIADNA-JEAN-PIERRE, MURIEL DO Unavailable Unavailable ARIADNA-JEAN-PIERRE, MURIEL DO Unavailable Unavailable ARIADNA-JEAN-PIERRE, MURIEL DO Unavailable Unavailable ARIADNA-JEAN-PIERRE, MURIEL DO Unavailable Unavailable ARIADNA-JEAN-PIERRE, MURIEL DO Unavailable Unavailable ARIADNA-JEAN-PIERRE, MURIEL DO Unavailable Unavailable ARIADNA-JEAN-PIERRE, MURIEL DO Unavailable Unavailable ARIADNA-JEAN-PIERRE, MURIEL DO Unavailable Unavailable ARIADNA-JEAN-PIERRE, MURIEL DO Unavailable Unavailable ARIADNA-JEAN-PIERRE, MURIEL DO Unavailable Unavailable ARIADNA-JEAN-PIERRE, MURIEL DO Unavailable Unavailable ARIADNA-JEAN-PIERRE, MURIEL DO Unavailable Unavailable ARIADNA-JEAN-PIERRE, MURIEL DO Unavailable Unavailable ARIADNA-JEAN-PIERRE, MURIEL DO Unavailable Unavailable ARIADNA-JEAN-PIERRE, MURIEL DO Unavailable Unavailable ARIADNA-JEAN-PIERRE, MURIEL DO Unavailable Unavailable ARIADNA-JEAN-PIERRE, MURIEL DO Unavailable Unavailable ARIADNA-JEAN-PIERRE, MURIEL DO Unavailable Unavailable ARIADNA-JEAN-PIERRE, MURIEL DO Unavailable Unavailable ARIADNA-JEAN-PIERRE, MURIEL DO Unavailable Unavailable ARIADNA-JEAN-PIERRE, MURIEL DO Unavailable Unavailable ARIADNA-JEAN-PIERRE, MURIEL DO Unavailable Unavailable ARIADNA-JEAN-PIERRE, MURIEL DO Unavailable Unavailable ARIADNA-JEAN-PIERRE, MURIEL DO Unavailable Unavailable ARIADNA-JEAN-PIERRE, MURIEL DO Unavailable Unavailable ARIADNA-JEAN-PIERRE, MURIEL DO Unavailable Unavailable ARIADNA-JEAN-PIERRE, MURIEL DO Unavailable Unavailable ARIADNA-JEAN-PIERRE, MURIEL DO Unavailable Unavailable ARIADNA-JEAN-PIERRE, MURIEL DO Unavailable Unavailable ARIADNA-JEAN-PIERRE, MURIEL DO Unavailable Unavailable ARIADNA-JEAN-PIERRE, MURIEL DO Unavailable Unavailable ARIADNA-JEAN-PIERRE, MURIEL DO Unavailable Unavailable ARIADNA-JEAN-PIERRE, MURIEL DO Unavailable Unavailable ARIADAN-JEAN-PIERRE, MURIEL DO Unavailable Unavailable ARIADNA-JEAN-PIERRE, MURIEL DO Unavailable Unavailable ARIADNA-JEAN-PIERRE, MURIEL DO Unavailable Unavailable ARIADNA-JEAN-PIERRE, MURIEL DO Unavailable Unavailable ARIADNA-JEAN-PIERRE, MURIEL DO Unavailable Unavailable ARIADNA-JEAN-PIERRE, MURIEL DO Unavailable Unavailable ARIADNA-JEAN-PIERRE, MURIEL DO Unavailable Unavailable ARIADNA-JEAN-PIERRE, MURIEL DO Unavailable Unavailable ARIADNA-JEAN-PIERRE, MURIEL DO Unavailable Unavailable ARIADNA-JEAN-PIERRE, MURIEL DO Unavailable Unavailable ARIADNA-JEAN-PIERRE, MURIEL DO Unavailable Unavailable ARIADNA-JEAN-PIERRE, MURIEL DO Unavailable Unavailable ARIADNA-JEAN-PIERRE, MURIEL DO Unavailable Unavailable ARIADNA-JEAN-PIERRE, MURIEL DO Unavailable Unavailable ARIADNA-JEAN-PIERRE, MURIEL DO Unavailable Unavailable ARIADNA-JEAN-PIERRE, MURIEL DO Unavailable Unavailable ARIADNA-JEAN-PIERRE, MURIEL DO Unavailable Unavailable ARIADNA-JEAN-PIERRE, MURIEL DO Unavailable Unavailable ARIADNA-JEAN-PIERRE, MURIEL DO Unavailable Unavailable ARIADNA-JEAN-PIERRE, MURIEL DO Unavailable Unavailable ARIADNA-JEAN-PIERRE, MURIEL DO Unavailable Unavailable ARIADNA-JEAN-PIERRE, MURIEL DO Unavailable Unavailable ARIADNA-JEAN-PIERRE, MURIEL DO Unavailable Unavailable ARIADNA-JEAN-PIERRE, MURIEL DO Unavailable Unavailable ARIADNA-JEAN-PIERRE, MURIEL DO Unavailable Unavailable ARIADNA-JEAN-PIERRE, MURIEL DO Unavailable Unavailable ARIADNA-JEAN-PIERRE, MURIEL DO Unavailable Unavailable ARIADNA-JEAN-PIERRE, MURIEL DO Unavailable Unavailable ARIADNA-JEAN-PIERRE, MURIEL DO Unavailable Unavailable ARIADNA-JEAN-PIERRE, MURIEL DO Unavailable Unavailable ARIADNA-JEAN-PIERRE, MURIEL DO Unavailable Unavailable ARIADNA-JEAN-PIERRE, MURIEL DO Unavailable Unavailable ARIADNA-JEAN-PIERRE, MURIEL DO Unavailable Unavailable ARIADNA-JEAN-PIERRE, MURIEL DO Unavailable Unavailable Kevin, Galo PA Unavailable Unavailable Kevin, Galo PA Unavailable Unavailable Kevin, Galo PA Unavailable Unavailable Kevin, Galo PA Unavailable Unavailable Kevin, Galo PA Unavailable Unavailable Kevin, Galo PA Unavailable Unavailable Kevin, Galo PA Unavailable Unavailable Kevin, Galo PA Unavailable Unavailable Kevin, Galo PA Unavailable Unavailable Kevin, Galo PA Unavailable Unavailable Kevin, Galo PA Unavailable Unavailable Kevin, Galo PA Unavailable Unavailable Kevin, Galo PA Unavailable Unavailable Kevin, Galo PA Unavailable Unavailable Kevin, Galo PA Unavailable Unavailable Kevin, Galo PA Unavailable Unavailable Kevin, Galo PA Unavailable Unavailable Kevin, Galo PA Unavailable Unavailable Kevin, Galo PA Unavailable Unavailable Kevin, Galo PA Unavailable Unavailable Kevin, Galo PA Unavailable Unavailable Kevin, Galo PA Unavailable Unavailable Kevin, Galo PA Unavailable Unavailable Kevin, Galo PA Unavailable Unavailable Kevin, Galo PA Unavailable Unavailable Kevin, Galo PA Unavailable Unavailable Ekvin, Galo PA Unavailable Unavailable Kevin, Galo PA Unavailable Unavailable Kevin, Galo PA Unavailable Unavailable Kevin, Galo PA Unavailable Unavailable Kevin, Galo PA Unavailable Unavailable Kevin, Galo PA Unavailable Unavailable Kevin, Galo PA Unavailable Unavailable Kevin, Galo PA Unavailable Unavailable Kevin, Galo PA Unavailable Unavailable Kevin, Galo PA Unavailable Unavailable Kevin, Galo PA Unavailable Unavailable Kevin, Galo PA Unavailable Unavailable Kevin, Galo PA Unavailable Unavailable Kevin, Galo PA Unavailable Unavailable Kevin, Galo PA Unavailable Unavailable Kevin, Galo PA Unavailable Unavailable Kevin, Galo PA Unavailable Unavailable Kevin, Galo PA Unavailable Unavailable Kevin, Galo PA Unavailable Unavailable Kevin, Galo PA Unavailable Unavailable Kevin, Galo PA Unavailable Unavailable Kevin, Galo PA Unavailable Unavailable Kevin, Galo PA Unavailable Unavailable Kevin, Galo PA Unavailable Unavailable Kevin, Galo PA Unavailable Unavailable Kevin, Galo PA Unavailable Unavailable Kevin, Galo PA Unavailable Unavailable Kevin, Galo PA Unavailable Unavailable [place], Marii IT SALES EXECUTIVE Unavailable Unavailable [place], Marii IT SALES EXECUTIVE Unavailable Unavailable [place], Marii IT SALES EXECUTIVE Unavailable Unavailable [place], Marii IT SALES EXECUTIVE Unavailable Unavailable [place], Marii IT SALES EXECUTIVE Unavailable Unavailable [place], Marii IT SALES EXECUTIVE Unavailable Unavailable [place], Marii IT SALES EXECUTIVE Unavailable Unavailable [place], Marii IT SALES EXECUTIVE Unavailable Unavailable [place], Marii IT SALES EXECUTIVE Unavailable Unavailable [place], Marii IT SALES EXECUTIVE Unavailable Unavailable [place], Marii IT SALES EXECUTIVE Unavailable Unavailable [place], Marii IT SALES EXECUTIVE Unavailable Unavailable [place], Marii IT SALES EXECUTIVE Unavailable Unavailable [place], Marii IT SALES EXECUTIVE Unavailable Unavailable [place], Marii IT SALES EXECUTIVE Unavailable Unavailable [place], Marii IT SALES EXECUTIVE Unavailable Unavailable [place], Marii IT SALES EXECUTIVE Unavailable Unavailable [place], Marii IT SALES EXECUTIVE Unavailable Unavailable [place], Marii IT SALES EXECUTIVE Unavailable Unavailable [place], Marii IT SALES EXECUTIVE Unavailable Unavailable [place], Marii IT SALES EXECUTIVE Unavailable Unavailable [place], Marii IT SALES EXECUTIVE Unavailable Unavailable [place], Marii IT SALES EXECUTIVE Unavailable Unavailable [place], Marii IT SALES EXECUTIVE Unavailable Unavailable [place], Marii IT SALES EXECUTIVE Unavailable Unavailable [place], Marii IT SALES EXECUTIVE Unavailable Unavailable [place], Marii IT SALES EXECUTIVE Unavailable Unavailable [place], Marii IT SALES EXECUTIVE Unavailable Unavailable [place], Marii IT SALES EXECUTIVE Unavailable Unavailable [place], Marii IT SALES EXECUTIVE Unavailable Unavailable [place], Marii IT SALES EXECUTIVE Unavailable Unavailable [place], Marii IT SALES EXECUTIVE Unavailable Unavailable [place], Marii IT SALES EXECUTIVE Unavailable Unavailable [place], Marii IT SALES EXECUTIVE Unavailable Unavailable [place], Marii IT SALES EXECUTIVE Unavailable Unavailable [place], Marii IT SALES EXECUTIVE Unavailable Unavailable O'jim, A Eyad PA Unavailable Unavailable O'jim, A Eyad PA Unavailable Unavailable O'jim, A Eyad PA Unavailable Unavailable O'jim, A Eyad PA Unavailable Unavailable O'ijm, A Eyad PA Unavailable Unavailable O'jim, A Eyad PA Unavailable Unavailable O'jim, A Eyad PA Unavailable Unavailable O'jim, A Eyad PA Unavailable Unavailable O'jim, A Eyad PA Unavailable Unavailable O'jim, A Eyad PA Unavailable Unavailable O'jim, A Eyad PA Unavailable Unavailable O'jim, A Eyad PA Unavailable Unavailable O'jim, A Eyad PA Unavailable Unavailable O'jim, A Eyad PA Unavailable Unavailable O'jim, A Eyad PA Unavailable Unavailable O'jim, A Eyad PA Unavailable Unavailable O'jim, A Eyad PA Unavailable Unavailable O'jim, A Eyad PA Unavailable Unavailable O'jim, A Eyad PA Unavailable Unavailable O'jim, A Eyad PA Unavailable Unavailable O'jim, A Eyad PA Unavailable Unavailable O'jim, A Eyad PA Unavailable Unavailable O'jim, A Eyad PA Unavailable Unavailable O'jim, A Eyad PA Unavailable Unavailable O'jim, A Eyad PA Unavailable Unavailable O'jim, A Eyad PA Unavailable Unavailable O'jim, A Eyad PA Unavailable Unavailable O'jim, A Eyad PA Unavailable Unavailable O'jim, A Eyad PA Unavailable Unavailable O'jim, A Eyad PA Unavailable Unavailable O'jim, A Eyad PA Unavailable Unavailable O'jim, A Eyad PA Unavailable Unavailable O'jim, A Eyad PA Unavailable Unavailable Boudreaux, L Ramona RPA Unavailable Unavailable Boudreaux, L Ramona RPA Unavailable Unavailable Boudreaux, L Ramona RPA Unavailable Unavailable Boudreaux, L Ramona RPA Unavailable Unavailable Boudreaux, L Ramona RPA Unavailable Unavailable Boudreaux, L Ramona RPA Unavailable Unavailable Boudreaux, L Ramona RPA Unavailable Unavailable Boudreaux, L Ramona RPA Unavailable Unavailable Boudreaux, L Ramona RPA Unavailable Unavailable Boudreaux, L Ramona RPA Unavailable Unavailable Boudreaux, L Ramona RPA Unavailable Unavailable Boudreaux, L Ramona RPA Unavailable Unavailable Boudreaux, L Ramona RPA Unavailable Unavailable Boudreaux, L Ramona RPA Unavailable Unavailable Boudreaux, L Ramona RPA Unavailable Unavailable Boudreaux, L Ramona RPA Unavailable Unavailable Boudreaux, L Ramona RPA Unavailable Unavailable Boudreaux, L Ramona RPA Unavailable Unavailable Boudreaux, L Ramona RPA Unavailable Unavailable Boudreaux, L Ramona RPA Unavailable Unavailable Boudreaux, L Ramona RPA Unavailable Unavailable Boudreaux, L Ramona RPA Unavailable Unavailable Boudreaux, L Ramona RPA Unavailable Unavailable Boudreaux, L Ramona RPA Unavailable Unavailable Boudreaux, L Ramona RPA Unavailable Unavailable Boudreaux, L Ramona RPA Unavailable Unavailable Boudreaux, L Ramona RPA Unavailable Unavailable Boudreaux, L Ramona RPA Unavailable Unavailable Boudreaux, L Ramona RPA Unavailable Unavailable Boudreaux, L Ramona RPA Unavailable Unavailable Boudreaux, L Ramona RPA Unavailable Unavailable Boudreaux, L Ramona RPA Unavailable Unavailable Zev, Byuong Unavailable Unavailable Sorensen, Harpal Unavailable Unavailable Reznikov, Tom Unavailable Unavailable Re-disclosure Warning The records that you are about to access may contain information from federally-assisted alcohol or drug abuse programs. If such information is present, then the following federally mandated warning applies: This information has been disclosed to you from records protected by federal confidentiality rules (42 CFR part 2). The federal rules prohibit you from making any further disclosure of this information unless further disclosure is expressly permitted by the written consent of the person to whom it pertains or as otherwise permitted by 42 CFR part 2. A general authorization for the release of medical or other information is NOT sufficient for this purpose. The Federal rules restrict any use of the information to criminally investigate or prosecute any alcohol or drug abuse patient.The records that you are about to access may contain highly sensitive health information, the redisclosure of which is protected by Article 27-F of the [facility] Public Health law. If you continue you may have access to information: Regarding HIV / AIDS; Provided by facilities licensed or operated by the [facility] Office of Mental Health; or Provided by the [facility] Office for People With Developmental Disabilities. If such information is present, then the following [facility] mandated warning applies: This information has been disclosed to you from confidential records which are protected by state law. State law prohibits you from making any further disclosure of this information without the specific written consent of the person to whom it pertains, or as otherwise permitted by law. Any unauthorized further disclosure in violation of state law may result in a fine or shelter sentence or both. A general authorization for the release of medical or other information is NOT sufficient authorization for further disc losure. Family History Family Member Name Family Member Gender Family Member Status Date o f Status Description Data Source(s) Unknown Unknown Problem [facility] ([facility]) Encounters Encounter Providers Location Date Indications Data Source(s ) Outpatient Attender: Eyad REYNA [facility] 07/21/2021 11:20:00 AM EDT [facility] ([facility]) Outpatient Attender: MURIEL GOODE DO [facility] 06/23/2021 03:30:00 PM EDT [facility] ([facility]) Outpatient Attender: Emily Cartagena [facility] Main Office 06/16/2021 08:45:00 AM EDT [facility] ([facility]) Outpatient Attender: Ramona Irvin/Shayy/Bimal/Gilmar holder 06/08/2021 01:00:00 PM EDT [facility] ([facility] Outpatient Attender: Tom Ruizdmitter: Tom Hunter prather: Priscila Brothers 05/22/2021 11:30:38 AM EDT [facility] Outpatient Attender: Tom Ruizdmitter: Tom Hunter prather: Priscila Zavalau 05/22/2021 11:30:38 AM EDT [facility] Inpatient 05/21/2021 10:23:32 AM EDT [facility] Outpatient Attender: Harpal SorensenAdmitter: Harpal Pineda prather: Priscila Zavalau 05/20/2021 04:36:36 PM EDT [facility] Outpatient Attender: Eyad REYNA [facility] 05/20/2021 08:45:00 AM EDT [facility] ([facility]) Outpatient Attender: Eyad REYNA [facility] 03/10/2021 01:30:00 PM EDT [facility] ([facility]) Outpatient Attender: Eyad REYNA [facility] 02/16/2021 04:00:00 PM EDT [facility] ([facility]) Outpatient Attender: Eyad REYNA [facility] 12/01/2020 08:30:00 AM EST [facility] ([facility]) Outpatient Attender: Eyad REYNA [facility] 10/21/2020 07:00:00 AM EST [facility] ([facility]) Outpatient Attender: Galo REYNA [facility] 08/11/2020 04:10:00 PM EDT [facility] ([facility]) Immunizations Vaccine Date Status Description Data Source(s) COVID-19 VACCINE Moderna 12/04/2020 12:00:00 AM EST completed [facility] Vaccine Series Complete: YESThis Data wa s Submitted to [facility] Via [employer]. COVID-19 VACCINE Moderna 11/06/2020 12:00:00 AM EST completed [facility] Vaccine Series Complete: NOThis Data was Submitted to [facility] Via [employer]. Medications Medication Brand Name Start Date Product Form Dose Route Admi nistrative Instructions Pharmacy Instructions Status Indications Reaction Description Data Source(s) SUPREP BOWEL PREP KIT 17.5-3.13-1.6 gram SODIUM, POTASSIUM,M AG SULFATES 09/01/2021 12:00:00 AM EST recon soln 354 TAKE PER DOCTOR'S BOWEL PREP INSTRUCTIONS TAKE PER DOCTOR'S BOWEL PREP INSTRUCTIONS SOLD: 09/01/2021 [facility] BLOOD SUGAR DIAGNOSTIC 08/18/2021 12:00:00 AM EDT strip 100 TEST FASTING BLOOD SUGAR ONCE DAILY WITH FREESTYLE GLUCOMETER TEST FASTING BLOOD SUGAR ONCE DAILY WITH FREESTYLE GLUCOMETER SOLD: 09/01/2021 [facility] 28 gauge 08/18/2021 12:00:00 AM EDT misc 100 USE IN COMBINATION WITH GLUCOMETER EACH MORNING USE IN COMBINATION WITH GLUCOMETER EACH MORNING SOLD: 09/01/2021 [facility] 20 mg 08/10/2021 12:00:00 AM EDT capsule,delayed release (DR/EC) 90 TAKE ONE CAPSULE BY MOUTH EVERY DAY TAKE ONE CAPSULE BY MOUTH EVERY DAY SOLD: 08/12/2021 [facility] Alprazolam 0.5 MG Oral Tablet ALPRAZOLAM 08/10/2021 12:00:00 AM EDT ta blet 24 TAKE ONE TABLET BY MOUTH TWICE A DAY NEEDED * MAXIMUM DAILY DOSE = 2 TAKE ONE TABLET BY MOUTH TWICE A DAY NEEDED * MAXIMUM DAILY DOSE = 2 SOLD: 08/12/2021 [facility] 800-160 mg 07/21/2021 12:00:00 AM EDT tablet 20 TAKE 1 TABLET BY MOUTH EVERY 12 HOURS FOR 10 DAYS TAKE 1 TABLET BY MOUTH EVERY 12 HOURS FOR 10 DAYS SOLD : 07/21/2021 [facility] Sulfamethoxazole 800 MG / Trimethoprim 160 MG Oral Tablet [B actrim] Bactrim DS 07/21/2021 12:00:00 AM EDT ORAL active [facility] ([facility]) 200 mg 06/23/2021 12:00:00 AM EDT tablet 10 TAKE 1 TABLET BY MOUTH EVERY 8 HOURS DIRECTED TAKE 1 TABLET BY MOUTH EVERY 8 HOURS DIRECTED SOLD: 06/23/2021 [facility] Phenazopyridine hydrochloride 200 MG Delayed Release O ral Tablet Phenazopyridine HCL 06/23/2021 12:00:00 AM EDT ORAL completed [facility] ([facility]) NITROFURANTOIN, MACROCRYSTALS 25 MG / Ni trofurantoin, Monohydrate 75 MG Oral Capsule [Macrobid] Macrobid 06/23/2021 12:00:00 AM EDT ORAL completed [facility] ([facility]) NITROFURANTOIN, MACROCRYSTALS 25 MG / Ni trofurantoin, Monohydrate 75 MG Oral Capsule 100 mg NITROFURANTOIN MONOHYD/M-CRYST 06/23/2021 12:00:00 AM EDT ca psule 14 TAKE ONE CAPSULE BY MOUTH TWICE A DAY FOR 7 DAYS TAKE ONE CAPSULE BY MOUTH TWICE A DAY FOR 7 DAYS SOLD: 06/23/2021 [facility] 60 mg 06/04/2021 12:00:00 AM EDT capsule,delayed release (DR/EC) 30 TAKE ONE CAPSULE BY MOUTH EVERY DAY TAKE ONE CAPSULE BY MOUTH EVERY DAY SOLD: 07/13/2021 [facility] 60 mg 06/04/2021 12:00:00 AM EDT capsule,delayed release (DR/EC) 30 TAKE ONE CAPSULE BY MOUTH EVERY DAY TAKE ONE CAPSULE BY MOUTH EVERY DAY SOLD: 08/12/2021 [facility] 60 mg 06/04/2021 12:00:00 AM EDT capsule,delayed release (DR/EC) 30 TAKE ONE CAPSULE BY MOUTH EVERY DAY TAKE ONE CAPSULE BY MOUTH EVERY DAY SOLD: 06/10/2021 [facility] duloxetine 60 MG Delayed Release Oral Capsule Duloxetine HCL 06/02/2021 12:00:00 AM EDT active [facility] ([facility]) 1,250 mcg (50,000 unit) 05/21/2021 12:00:00 AM EDT capsule 12 TAKE ONE CAPSULE BY MOUTH ONCE WEEKLY TAKE ONE CAPSULE BY MOUTH ONCE WEEKLY SOLD: 05/21/2021 [facility] 0.25 mg or 0.5 mg(2 mg/1.5 mL) 03/11/2021 12:00:00 AM EDT pe n injector 4 INJECT 0.25MG UNDER THE SKIN ONCE WEEKLY FOR 4 WEEKS THEN INCREASE TO 0.5MG ONCE WEEKLY INJECT 0.25MG UNDER THE SKIN ONCE WEEKLY FOR 4 WEEKS THEN INCREASE TO 0.5MG ONCE WEEKLY SOLD: 06/23/2021 [facility] 150 mcg 03/11/2021 12:00:00 AM EDT tablet 90 TAKE ONE TABLET BY MOUTH EVERY MORNING TAKE ONE TABLET BY MOUTH EVERY MORNING SOLD: 06/23/2021 [facility] 32 gauge x 1/4" 03/11/2021 12:00:00 AM EDT needle 13 TO BE USED WITH OZEMPIC PEN ONCE A WEEK TO BE USED WITH OZEMPIC PEN ONCE A WEEK SOLD: 03/24/2021 [facility] 150 mcg 03/11/2021 12:00:00 AM EDT tablet 90 TAKE ONE TABLET BY MOUTH EVERY MORNING TAKE ONE TABLET BY MOUTH EVERY MORNING SOLD: 03/24/2021 [facility] 0.25 mg or 0.5 mg(2 mg/1.5 mL) 03/11/2021 12:00:00 AM EDT pe n injector 4 INJECT 0.25MG UNDER THE SKIN ONCE WEEKLY FOR 4 WEEKS THEN INCREASE TO 0.5MG ONCE WEEKLY INJECT 0.25MG UNDER THE SKIN ONCE WEEKLY FOR 4 WEEKS THEN INCREASE TO 0.5MG ONCE WEEKLY SOLD: 03/24/2021 [facility] Ozempic (0.25 Or 0.5 MG/Dose) Ozempic (0.25 Or 0.5 MG/Dose) 03/10/2021 12:00:00 AM EDT SUBCUTANEOUS active MEDE NT ([facility]) Novofine 03/10/2021 12:00:00 AM EDT active [facility] ([facility]) Alprazolam 0.25 MG Oral Tablet ALPRAZOLAM 03/05/2021 12:00:00 AM EDT tablet 30 TAKE ONE TABLET NEEDED FOR ANXIETY ATTACKS, MAXIMUM DAILY DOSE = 1 TABLET TAKE ONE TABLET NEEDED FOR ANXIETY ATTACKS, MAXIMUM DAILY DOSE = 1 TABLET SOLD: 03/06/2021 [facility] 500 mg 02/18/2021 12:00:00 AM EDT tablet extended release 24 hr 360 TAKE 2 TABLETS BY MOUTH TWO TIMES A DAY WITH FOOD TAKE 2 TABLETS BY MOUTH TWO TIMES A DAY WITH FOOD SOLD: 02/18/2021 [facility] Freestyle Test 02/17/2021 12:00:00 AM EDT act khai MED[facility] ([facility]) Lancet Device 02/17/2021 12:00:00 AM EDT acti ve MED[facility] ([facility]) Freestyle [place] Lite 02/17/2021 12:00:00 AM EDT active [facility] ([facility]) BLOOD-GLUCOSE METER 02/17/2021 12:00:00 AM EDT kit 1 TEST FASTING BLOOD SUGAR EVERY MORNING TEST FASTING BLOOD SUGAR EVERY MORNING SOLD: 02/17/2021 [facility] 28 gauge 02/17/2021 12:00:00 AM EDT misc 100 USE IN COMBINATION WITH GLUCOMETER EACH MORNING USE IN COMBINATION WITH GLUCOMETER EACH MORNING SOLD: 02/17/2021 [facility] 20 mg 02/17/2021 12:00:00 AM EDT capsule,delayed release (DR/EC) 90 TAKE ONE CAPSULE WITH A 60 MG CAPSULE BY MOUTH ONCE DAILY TAKE ONE CAPSULE WITH A 60 MG CAPSULE BY MOUTH ONCE DAILY SOLD: 02/17/2021 [facility] BLOOD SUGAR DIAGNOSTIC 02/17/2021 12:00:00 AM EDT strip 100 TEST FASTING BLOOD SUGAR ONCE DAILY WITH FREESTYLE GLUCOMETER TEST FASTING BLOOD SUGAR ONCE DAILY WITH FREESTYLE GLUCOMETER SOLD: 02/17/2021 [facility] 1,250 mcg (50,000 unit) 02/17/2021 12:00:00 AM EDT capsule 12 TAKE ONE CAPSULE BY MOUTH EVERY WEEK FOR 12 WEEKS TAKE ONE CAPSULE BY MOUTH EVERY WEEK FOR 12 WEEKS SOLD: 02/17/2021 [facility] 24 HR Metformin hydrochloride 500 MG Extended Release Oral Tablet Metformin HCL ER 02/17/2021 12:00:00 AM EDT ORAL completed [facility] ([facility]) 24 HR Metformin hydrochloride 500 MG Extended Release Oral Tablet Metformin HCL ER 02/17/2021 12:00:00 AM EDT ORAL completed [facility] ([facility]) BLOOD SUGAR DIAGNOSTIC 02/17/2021 12:00:00 AM EDT strip 100 TEST FASTING BLOOD SUGAR ONCE DAILY WITH FREESTYLE GLUCOMETER TEST FASTING BLOOD SUGAR ONCE DAILY WITH FREESTYLE GLUCOMETER SOLD: 05/21/2021 [facility] 20 mg 02/17/2021 12:00:00 AM EDT capsule,delayed release (DR/EC) 90 TAKE ONE CAPSULE WITH A 60 MG CAPSULE BY MOUTH ONCE DAILY TAKE ONE CAPSULE WITH A 60 MG CAPSULE BY MOUTH ONCE DAILY SOLD: 05/21/2021 [facility] 28 gauge 02/17/2021 12:00:00 AM EDT misc 100 USE IN COMBINATION WITH GLUCOMETER EACH MORNING USE IN COMBINATION WITH GLUCOMETER EACH MORNING SOLD: 05/21/2021 [facility] duloxetine 20 MG Delayed Release Oral Capsule Duloxetine HCL 02/16/2021 12:00:00 AM EDT ORAL completed [facility] ([facility]) ferrous sulfate 325 MG Oral Tablet Ferosul 01/01/2021 12:00:00 AM EDT active [facility] ([facility]) 150 mcg 12/02/2020 12:00:00 AM EST tablet 90 TAKE ONE TABLET BY MOUTH EVERY MORNING TAKE ONE TABLET BY MOUTH EVERY MORNING SOLD: 12/03/2020 [facility] 60 mg 12/01/2020 12:00:00 AM EST capsule,delayed release (DR/EC) 30 TAKE ONE CAPSULE BY MOUTH EVERY DAY TAKE ONE CAPSULE BY MOUTH EVERY DAY SOLD: 03/06/2021 [facility] 60 mg 12/01/2020 12:00:00 AM EST capsule,delayed release (DR/EC) 30 TAKE ONE CAPSULE BY MOUTH EVERY DAY TAKE ONE CAPSULE BY MOUTH EVERY DAY SOLD: 05/07/2021 [facility] 60 mg 12/01/2020 12:00:00 AM EST capsule,delayed release (DR/EC) 30 TAKE ONE CAPSULE BY MOUTH EVERY DAY TAKE ONE CAPSULE BY MOUTH EVERY DAY SOLD: 01/03/2021 [facility] Levothyroxine Sodium 0.15 MG Oral Capsule Levothyroxine Sodi um 12/01/2020 12:00:00 AM EST ORAL active M [facility] ([facility]) 60 mg 12/01/2020 12:00:00 AM EST capsule,delayed release (DR/EC) 30 TAKE ONE CAPSULE BY MOUTH EVERY DAY TAKE ONE CAPSULE BY MOUTH EVERY DAY SOLD: 02/03/2021 [facility] 60 mg 12/01/2020 12:00:00 AM EST capsule,delayed release (DR/EC) 30 TAKE ONE CAPSULE BY MOUTH EVERY DAY TAKE ONE CAPSULE BY MOUTH EVERY DAY SOLD: 04/04/2021 [facility] 60 mg 12/01/2020 12:00:00 AM EST capsule,delayed release (DR/EC) 30 TAKE ONE CAPSULE BY MOUTH EVERY DAY TAKE ONE CAPSULE BY MOUTH EVERY DAY SOLD: 12/03/2020 [facility] Alprazolam 0.25 MG Oral Tablet ALPRAZOLAM 11/29/2020 12:00:00 AM EST tablet 30 TAKE 1 TABLET BY MOUTH NEEDED FOR ANXIETY ATTACKS * MAXIMUM DAILY DOSE = 1 TAKE 1 TABLET BY MOUTH NEEDED FOR ANXIETY ATTACKS * MAXIMUM DAILY DOSE = 1 SOLD: 12/03/2020 [facility] 137 mcg 10/27/2020 12:00:00 AM EST tablet 30 TAKE ONE TABLET BY MOUTH EVERY DAY TAKE ONE TABLET BY MOUTH EVERY DAY SOLD: 02/03/2021 [facility] 137 mcg 10/27/2020 12:00:00 AM EST tablet 30 TAKE ONE TABLET BY MOUTH EVERY DAY TAKE ONE TABLET BY MOUTH EVERY DAY SOLD: 12/03/2020 [facility] 137 mcg 10/27/2020 12:00:00 AM EST tablet 30 TAKE ONE TABLET BY MOUTH EVERY DAY TAKE ONE TABLET BY MOUTH EVERY DAY SOLD: 03/06/2021 [facility] 137 mcg 10/27/2020 12:00:00 AM EST tablet 30 TAKE ONE TABLET BY MOUTH EVERY DAY TAKE ONE TABLET BY MOUTH EVERY DAY SOLD: 01/03/2021 [facility] 137 mcg 10/27/2020 12:00:00 AM EST tablet 30 TAKE ONE TABLET BY MOUTH EVERY DAY TAKE ONE TABLET BY MOUTH EVERY DAY SOLD: 11/02/2020 [facility] Alprazolam 0.25 MG Oral Tablet ALPRAZOLAM 10/16/2020 12:00:00 AM EST tablet 30 TAKE ONE TABLET BY MOUTH ONCE NEEDED FOR ANXIETY ATTACK, MAXIMUM DAILY DOSE = 1 TABLET TAKE ONE TABLET BY MOUTH ONCE NEEDED FOR ANXIETY ATTACK, MAXIMUM DAILY DOSE = 1 TABLET SOLD: 10/17/2020 [facility] Alprazolam 0.25 MG Oral Tablet ALPRAZOLAM 08/01/2020 12:00:00 AM EDT tablet 30 TAKE ONE TABLET BY MOUTH EVERY DAY NE EDED FOR ANXIETY MAXIMUM DAILY DOSE = 1 TAKE ONE TABLET BY MOUTH EVERY DAY NE EDED FOR ANXIETY MAXIMUM DAILY DOSE = 1 SOLD: 08/01/2020 [facility] 325 mg (65 mg iron) 07/02/2020 12:00:00 AM EDT tablet 90 TAKE ONE TABLET BY MOUTH EVERY DAY WITH FOOD TAKE ONE TABLET BY MOUTH EVERY DAY WITH FOOD SOLD: 07/07/2020 [facility] 325 mg (65 mg iron) 07/02/2020 12:00:00 AM EDT tablet 90 TAKE ONE TABLET BY MOUTH EVERY DAY WITH FOOD TAKE ONE TABLET BY MOUTH EVERY DAY WITH FOOD SOLD: 10/06/2020 [facility] 1,250 mcg (50,000 unit) 07/01/2020 12:00:00 AM EDT capsule 12 TAKE ONE CAPSULE BY MOUTH ONCE WEEKLY TAKE ONE CAPSULE BY MOUTH ONCE WEEKLY SOLD: 07/07/2020 [facility] 60 mg 05/27/2020 12:00:00 AM EDT capsule,delayed release (DR/EC) 30 TAKE ONE CAPSULE BY MOUTH ONCE A DAY TAKE ONE CAPSULE BY MOUTH ONCE A DAY SOLD: 08/06/2020 [facility] 60 mg 05/27/2020 12:00:00 AM EDT capsule,delayed release (DR/EC) 30 TAKE ONE CAPSULE BY MOUTH ONCE A DAY TAKE ONE CAPSULE BY MOUTH ONCE A DAY SOLD: 10/06/2020 [facility] 60 mg 05/27/2020 12:00:00 AM EDT capsule,delayed release (DR/EC) 30 TAKE ONE CAPSULE BY MOUTH ONCE A DAY TAKE ONE CAPSULE BY MOUTH ONCE A DAY SOLD: 07/07/2020 [facility] 60 mg 05/27/2020 12:00:00 AM EDT capsule,delayed release (DR/EC) 30 TAKE ONE CAPSULE BY MOUTH ONCE A DAY TAKE ONE CAPSULE BY MOUTH ONCE A DAY SOLD: 11/06/2020 [facility] 60 mg 05/27/2020 12:00:00 AM EDT capsule,delayed release (DR/EC) 30 TAKE ONE CAPSULE BY MOUTH ONCE A DAY TAKE ONE CAPSULE BY MOUTH ONCE A DAY SOLD: 09/06/2020 [facility] 137 mcg 03/07/2020 12:00:00 AM EDT tablet 30 TAKE ONE TABLET BY MOUTH EVERY DAY TAKE ONE TABLET BY MOUTH EVERY DAY SOLD: 08/24/2020 [facility] 137 mcg 03/07/2020 12:00:00 AM EDT tablet 30 TAKE ONE TABLET BY MOUTH EVERY DAY TAKE ONE TABLET BY MOUTH EVERY DAY SOLD: 09/28/2020 [facility] 137 mcg 03/07/2020 12:00:00 AM EDT tablet 30 TAKE ONE TABLET BY MOUTH EVERY DAY TAKE ONE TABLET BY MOUTH EVERY DAY SOLD: 07/26/2020 [facility] Insurance Providers Payer name Policy type / Coverage type Policy ID Covered green party ID Covered green party's relationship to lyle Policy Lyle Plan Information [employer]OM[employer] [id number] SP [id number] [employer] [id number] SP [id number] BLUE CROSS [id number] SP [id number] BLUE CROSS [id number] [facility] [facility] Other 0 [id number] Self 0 [employer] of [facility] Other 0 [id number] Self 0 [employer] [facility] Other 0 [id number] Self 0 [employer] of [facility] Other 0 [id number] Self 0 [employer] [place] Other 0 [id number] Self 0 [employer] [place] Other 0 [id number] Self 0 [facility] (HMO) [id number] Self [id number] [employer] (HMO) [id number] Self [id number] [employer] (HMO) [id number] Self [id number] [employer] (HMO) [id number] Self [id number] [employer] (HMO) [id number] Self [id number] UMR [facility] [id number] SP [id number] Daniel LINDER UNAVAILABLE UNAVAILABLE [employer] [id number] Self POMCO [id number] SP [id number] UMR [facility] CARE [id number] SP [id number] O UNAVAILABLE UNAVAILA BLE Daniel LINDER [id number] SE [id number] [employer] [place] Other 0 [id number] Self 0 [employer] [place] Other 0 [id number] Self 0 [employer] [place] Other 0 [id number] Self 0 [employer] [place] Other 0 [id number] Self 0 [facility] [id number] UMR F [id number] SELF [id number] Problems, Conditions, and Diagnoses Code Display Name Description Problem Type Effective Dates Data Source(s) E11.9 Type 2 diabetes mellitus Type 2 diabetes mellitus Prob diana 05/20/2021 12:00:00 AM EDT [facility] ([facility]) E55.9 Vitamin D deficiency Vitamin D deficiency Problem 05/20/2021 12:00:00 AM EDT [facility] ([facility]) Surgeries/Procedures Procedure Description Date Indications Data Source(s) OFFICE OUTPATIENT VISIT 15 MINUTES 07/21/2021 12:00:00 AM EDT [facility] ([facility]) OFFICE OUTPATIENT VISIT 15 MINUTES 06/23/2021 12:00:00 AM EDT [facility] ([facility]) OFFICE OUTPATIENT VISIT 25 MINUTES 06/16/2021 12:00:00 AM EDT [facility] ([facility]) OFFICE OUTPATIENT NEW 45 MINUTES 06/08/2021 12:00:00 A M EDT [facility] ([facility] ) OFFICE OUTPATIENT VISIT 25 MINUTES 05/20/2021 12:00:00 AM EDT [facility] ([facility]) OFFICE OUTPATIENT VISIT 15 MINUTES 03/10/2021 12:00:00 AM EDT [facility] ([facility]) OFFICE OUTPATIENT VISIT 25 MINUTES 02/16/2021 12:00:00 AM EDT [facility] ([facility]) OFFICE OUTPATIENT VISIT 25 MINUTES 12/01/2020 12:00:00 AM EST [facility] ([facility]) Results ID Date Data Source [id number] 07/21/2021 12:07:00 PM EDT [facility] ([facility]) Name Value Range Interpretation Code Description Data Hetal rce(s) Supporting Document(s) Inhouse Leukocytes Laboratory test result [facility] ([facility]) Inhouse Glucose Laboratory test result [facility] ([facility]) ID Date Data Source [id number] 07/21/2021 11:55:00 AM EDT [facility] ([facility]) Name Value Range Interpretation Code Description Data Hetal rce(s) Supporting Document(s) Bacteria identified in Urine by Culture Laboratory test result Normal (applies to non-numeric results) [facility] ([facility]) FULL REPORT IN LAB NOTES ([facility] and [facility] ). NO GROWTH ID Date Data Source [id number] 06/23/2021 04:44:00 PM EDT [facility] ([facility]) Name Value Range Interpretation Code Description Data Hetal rce(s) Supporting Document(s) Inhouse Leukocytes Laboratory test result [facility] ([facility]) Inhouse Nitrite Laboratory test result [facility] ([facility]) Inhouse Urobilinogen Laboratory test result [facility] ([facility]) Inhouse Protein Laboratory test result [facility] ([facility]) Inhouse PH 6 [facility] ([facility]) Inhouse Specific [place] 1.025 [facility] ([facility]) Inhouse Hemoglobin Laboratory test result [facility] ([facility]) Inhouse Bilirubin Laboratory test result [facility] ([facility]) Inhouse Ketones Laboratory test result [facility] ([facility]) Inhouse Glucose Laboratory test result [facility] ([facility]) ID Date Data Source [id number] 06/23/2021 03:23:00 PM EDT [facility] ([facility]) Name Value Range Interpretation Code Description Data Hetal rce(s) Supporting Document(s) Bacteria identified in Urine by Culture Laboratory test result Normal (applies to non-numeric results) [facility] ([facility]) <content>FULL REPORT IN LAB NOTES ([facility]CW a nd [facility]).</content>
<content></content>
<content>ORGANISM 1: ESCHERICHIA COLI</content>
<content></content>
<content>COLONY COUNT 50,000</content>
<content></content>
<content></content>
<content>OR GANISM 1: ESCHERICHIA COLI</content>
<content></content>
<content> ESCHERICHIA COLI: REACTION</content>
<content>TRIMETHOPRIM/SULFAMETHOXAZOLE IV 160mg TMP & 800mg SMXq6h <=20 S</content>
<content> TRIMETHOPRIM/SULFAMETHOXAZOLE PO Bactrim DS Bid <=20 S</content>
<content>AMPICILLIN IV 500mg q6h 4 S</content>
<content>AMPICILLIN PO 500mg q6h fasting 4 S</content>
<content>GENTAMICIN IV 80mg q8h <=1 S</content>
<content>NITROFURANTOIN PO 100mg BID <=16 S</content>
<content>CEFAZOLIN IV 1gm q8h <=4 S</content>
<content> LEVOFLOXACIN IV 500mg qd <=0.12 S</content>
<content>LEVOFLOXACIN PO 250mg qd <=0.12 S</content>
<content>LEVOFLOXACIN PO 500mg qd <=0.12 S</content>
<content>TOBRAMYCIN IV 80mg q8h <=1 S</content>
<content>CEFTRIAXONE IV 1gm q24h <=1 S</content>
<content>CEFTAZIDIME IV 1gm q8h <=1 S</content>
<content> AMPICILLIN/SULBACTAM IV 1.5g q6h <=2 S</content>
<content>PIPERACILLIN/TAZOBACTAM IV 2.25 gm q6h <=4 S</content>
<content>AZTREONAM IV 1gm q8h <=1 S</content>
<content>ERTAPENEM IV 1gm qd <=0.5 S</content>
<content>MEROPENEM IV 1 gm q8h <=0.25 S</content>
<content>MEROPENEM IV 500 mg q8h <=0.25 S</content>
<content>TIGECYCLINE IV 50mg q12h <=0.5 S</content>
<content>CEFEPIME IV 1 gm q12h <=1 S</content>
<content>CEFEPIME IV 2 gm q12h <=1 S</content>
<content>EXTD BRD SPCTRM BETA LACTAMASE IV NEGATIVE FOR ESBL</content>
<content></content> ID Date Data Source [id number] 05/22/2021 11:30:32 AM EDT [facility] UNILATERAL DIGITAL DIAGNOSTIC LEFT BREAS T TOMOSYNTHESIS/MAMMOGRAM WITH TARGETED LEFT BREAST SONOGRAMUnilateral digital diagnostic left breast tomosynthesis/mammogram with R2 computer aided detectionfollowed by targeted left breast sonogram.CLINICAL HISTORY:Asymmetric density recent left breast somewhat more obvious, lateral to left nippleCOMPARISON:05/20/2021 and prior examsTECHNIQUE:Spot compression left CC and left lateral tomosynthesis with 2D reconstruction. R2 computer aideddetection was utilized.Sonogram targets the left periareolar 2 o'clock locationFINDINGS:Unilateral digital diagnostic left breast tomosynthesis/ mammogram: Lateral view negative. Spot CCtomographic images revert to a baseline appearance. No concerning findingsTargeted left breast sonogram: 2 o'clock periareolar abnormality sonographically normalBI- RADS: 2 - Benign.ACR Density B(2)Lifetime risk:Risk 8.7% 5 year risk 0.7%The patient was added to our recall/reminder list.Last clinical exam 2020. Results were discussed with the patient. The patient was given a resultletter.IMPRESSION:Diagnostic left breast mammogram negative. Sonogram negative. Please return the patient routinefollow-up in 1 year. Patient aware of the results. Name Value Range Interpretation Code Description Data Hetal rce(s) Supporting Document(s) ID Date Data Source [id number] 05/22/2021 11:30:32 AM EDT [facility] UNILATERAL DIGITAL DIAGNOSTIC LEFT BREAS T TOMOSYNTHESIS/MAMMOGRAM WITH TARGETED LEFT BREAST SONOGRAMUnilateral digital diagnostic left breast tomosynthesis/mammogram with R2 computer aided detectionfollowed by targeted left breast sonogram.CLINICAL HISTORY:Asymmetric density recent left breast somewhat more obvious, lateral to left nippleCOMPARISON:05/20/2021 and prior examsTECHNIQUE:Spot compression left CC and left lateral tomosynthesis with 2D reconstruction. R2 computer aideddetection was utilized.Sonogram targets the left periareolar 2 o'clock locationFINDINGS:Unilateral digital diagnostic left breast tomosynthesis/ mammogram: Lateral view negative. Spot CCtomographic images revert to a baseline appearance. No concerning findingsTargeted left breast sonogram: 2 o'clock periareolar abnormality sonographically normalBI- RADS: 2 - Benign.ACR Density B(2)Lifetime risk:Risk 8.7% 5 year risk 0.7%The patient was added to our recall/reminder list.Last clinical exam 2020. Results were discussed with the patient. The patient was given a resultletter.IMPRESSION:Diagnostic left breast mammogram negative. Sonogram negative. Please return the patient routinefollow-up in 1 year. Patient aware of the results. Name Value Range Interpretation Code Description Data Hetal rce(s) Supporting Document(s) ID Date Data Source [id number] 05/20/2021 04:36:29 PM EDT [facility] PROFESSIONAL INTERPRETATION PERFORMED BY :[facility]:PROFESSIONAL INTERPRETATION FOR: ZEV FRASER M.D. P.CJulienEXAMINATION: 3D/2D BILATERAL SCREENING MAMMOGRAMINDICATION: ScreeningLast clinical breast exam: 05/20/21BREAST CANCER RISK ASSESSMENT:5 Year Risk (at current age):0.7 %Lifetime Risk (to age 90): 8.7 %TECHNIQUE: Bilateral craniocaudal and mediolateral oblique 3D mammograms were obtained usingtomosynthesis technique. Synthesized 2D projections are generated and reviewed. Interpretation isaided by R2 CAD. Comparison is made to prior studies, most recently 04/2020.FINDINGS:ACR density category: BScattered fibroglandular tissue. The right breast is normal. Interval development of a irregularnodule on the left CC view slice 18 of slab 73. This measures 6 mm and located approximately 4.4cm deep to the nipple. On the MLO view this appears to correspond to a new nodule on slice 28 slab68 placing this at approximately the 3:00 position. Further evaluation with an mL view and arolled CC view medially recommended. If this persists targeted ultrasonography recommended.IMPRESSIONRight breast is normal.New nodule as described above left breast possibly 3:00 position. If this persists on diagnosticviews ultrasound evaluation targeted to the nodule suggested.BI-RADS: 0 Incomplete. Need additional Imaging evaluation and/or prior mammograms for comparison. Name Value Range Interpretation Code Description Data Hetal rce(s) Supporting Document(s) ID Date Data Source [id number] 08/11/2020 12:00:00 PM EDT [facility] Name Value Range Interpretation Code Description Data Hetal rce(s) Supporting Document(s) SARS-CoV-2 (COVID-19) [facility] This lab was ordered by [facility] and reported by [facility]. Procedure Social History Code Duration Value Status Description Data Source(s ) Smoking 06/23/2021 12:00:00 AM EDT Patient has never smoked co mpleted Patient has never smoked [facility] ([facility]) Vital Signs ID Date Data Source UNK Name Value Range Interpretation Code Description Data Source(s) Systolic blood pressure 130 mm[Hg] 130 mm[Hg] M [facility] ([facility]) Diastolic blood pressure 78 mm[Hg] 78 mm[Hg] [facility] ([facility]) Body height 69.6 [in_i] 69.6 [in_i] [facility] ([facility]) 5'9.60" Body weight 202.12 [lb_av] 202.12 [lb_av] [facility] ([facility]) Body mass index (BMI) [Ratio] 29.3 kg/m2 29.3 k g/m2 [facility] ([facility]) Heart rate 104 /min 104 /min [facility] ([facility]) Respiratory rate 12 /min 12 /min [facility] ( [facility]) Body temperature 98.5 [degF] 98.5 [degF] [facility] ([facility]) Oxygen saturation in Arterial blood by Pulse oximetry 98 % 98 % [facility] ([facility]) [place] body weight 145 [lb_av] 145 [lb_av] [facility] ([facility]) Respiratory rate 18 /min 18 /min [facility] ( [facility]) Body temperature 98.7 [degF] 98.7 [degF] [facility] ([facility]) Systolic blood pressure 122 mm[Hg] 122 mm[Hg] M [facility] ([facility]) Diastolic blood pressure 82 mm[Hg] 82 mm[Hg] [facility] Body height 69.6 [in_i] 69.6 [in_i] [facility] 5'9.60" Body weight 202.00 [lb_av] 202.00 [lb_av] [facility] ([facility]) Body mass index (BMI) [Ratio] 29.3 kg/m2 29.3 k g/m2 [facility] [place] body weight 145 [lb_av] 145 [lb_av] [facility] ([facility]) Heart rate 97 /min 97 /min [facility] ([facility]) Oxygen saturation in Arterial blood by Pulse oximetry 987 % 987 % [facility] ([facility]) Body weight 198.00 [lb_av] 198.00 [lb_av] [facility] ([facility]) Respiratory rate 15 /min 15 /min [facility] ( [facility]) Body mass index (BMI) [Ratio] 27.6 kg/m2 27.6 k g/m2 [facility] ([facility]) Body height 71 [in_i] 71 [in_i] [facility] ([facility]) 5'11" Systolic blood pressure 99 mm[Hg] 99 mm[Hg] [facility] ([facility], ) Diastolic blood pressure 67 mm[Hg] 67 mm[Hg] [facility], ) Body temperature 98.6 [degF] 98.6 [degF] [facility] ([facility], ) Body height 71 [in_i] 71 [in_i] [facility] ([facility], ) 5'11" Body weight 200.38 [lb_av] 200.38 [lb_av] [facility] ([facility], ) Body mass index (BMI) [Ratio] 27.9 kg/m2 27.9 k g/m2 [facility] ([facility], ) [place] body weight 155 [lb_av] 155 [lb_av] [facility] ([facility], ) Body weight 90.890 kg 90.890 kg [facility] Body surface area Derived from formula 2.11 m2 2.11 m2 [facility] ([facility], ) Systolic blood pressure 110 mm[Hg] 110 mm[Hg] M [facility] ([facility]) Respiratory rate 14 /min 14 /min [facility] Body temperature 97.0 [degF] 97.0 [degF] [facility] Oxygen saturation in Arterial blood by Pulse oximetry 98 % 98 % [facility] ([facility]) [place] body weight 145 [lb_av] 145 [lb_av] [facility] ([facility]) Body mass index (BMI) [Ratio] 29.9 kg/m2 29.9 k g/m2 [facility] Heart rate 67 /min 67 /min [facility] ([facility]) Diastolic blood pressure 60 mm[Hg] 60 mm[Hg] [facility]) Body height 69.6 [in_i] 69.6 [in_i] [facility] ([facility]) 5'9.60" Body weight 206.00 [lb_av] 206.00 [lb_av] [facility] ([facility]) Body weight 222.00 [lb_av] 222.00 [lb_av] [facility] ([facility]) Heart rate 116 /min 116 /min [facility] Respiratory rate 18 /min 18 /min [facility] ( [facility]) Body mass index (BMI) [Ratio] 32.2 kg/m2 32.2 k g/m2 [facility] ([facility]) Body temperature 98.8 [degF] 98.8 [degF] [facility] Systolic blood pressure 126 mm[Hg] 126 mm[Hg] [facility] Diastolic blood pressure 72 mm[Hg] 72 mm[Hg] [facility] Body height 69.6 [in_i] 69.6 [in_i] [facility] ([facility]) 5'9.60" Oxygen saturation in Arterial blood by Pulse oximetry 99 % 99 % [facility] ([facility]) [place] body weight 145 [lb_av] 145 [lb_av] [facility] ([facility]) Systolic blood pressure 124 mm[Hg] 124 mm[Hg] M [facility] ([facility]) Diastolic blood pressure 72 mm[Hg] 72 mm[Hg] [facility] ([facility]) Body height 69.6 [in_i] 69.6 [in_i] [facility] ([facility]) 5'9.60" Body weight 223.25 [lb_av] 223.25 [lb_av] [facility] ([facility]) Body mass index (BMI) [Ratio] 32.4 kg/m2 32.4 k g/m2 [facility] ([facility]) Heart rate 98 /min 98 /min [facility] ([facility]) [place] body weight 145 [lb_av] 145 [lb_av] [facility] ([facility]) Respiratory rate 18 /min 18 /min [facility] ( [facility]) Body temperature 98.2 [degF] 98.2 [degF] [facility] ([facility]) Oxygen saturation in Arterial blood by Pulse oximetry 98 % 98 % [facility] ([facility]) Systolic blood pressure 120 mm[Hg] 120 mm[Hg] M [facility] ([facility]) Diastolic blood pressure 80 mm[Hg] 80 mm[Hg] [facility] ([facility]) Body height 69.6 [in_i] 69.6 [in_i] [facility] ([facility]) 5'9.60" Body weight 223.00 [lb_av] 223.00 [lb_av] [facility] ([facility]) Body mass index (BMI) [Ratio] 32.4 kg/m2 32.4 k g/m2 [facility] ([facility]) Heart rate 93 /min 93 /min [facility] ([facility]) Respiratory rate 16 /min 16 /min [facility] ( [facility]) Body temperature 98.0 [degF] 98.0 [degF] [facility] ([facility]) Oxygen saturation in Arterial blood by Pulse oximetry 99 % 99 % [facility] ([facility]) [place] body weight 145 [lb_av] 145 [lb_av] [facility] ([facility]) Systolic blood pressure 122 mm[Hg] 122 mm[Hg] M [facility] ([facility]) Diastolic blood pressure 68 mm[Hg] 68 mm[Hg] [facility] ([facility]) Body mass index (BMI) [Ratio] 32.1 kg/m2 32.1 k g/m2 [facility] ([facility]) Body height 69.6 [in_i] 69.6 [in_i] [facility] ([facility]) 5'9.60" Body weight 221.25 [lb_av] 221.25 [lb_av] [facility] ([facility]) [facility] 102 /min 102 /min [facility] Respiratory rate 18 /min 18 /min [facility] ( [facility]) Body temperature 98.0 [degF] 98.0 [degF] [facility] ([facility]) Oxygen saturation in Arterial blood by Pulse oximetry 98 % 98 % [facility] ([facility]) [place] body weight 145 [lb_av] 145 [lb_av] [facility] ([facility]) Body temperature 96.8 [degF] 96.8 [degF] [facility] ([facility]) Respiratory rate 18 /min 18 /min [facility] ( [facility]) Heart rate 78 /min 78 /min [facility] ([facility]) Systolic blood pressure 130 mm[Hg] 130 mm[Hg] M EDENT ([facility]) Diastolic blood pressure 78 mm[Hg] 78 mm[Hg] MEDENT ([facility]) Body height 69.6 [in_i] 69.6 [in_i] MEDENT ([facility]) 5'9.60" Body weight 219.00 [lb_av] 219.00 [lb_av] MEDEN T ([facility]) Body mass index (BMI) [Ratio] 31.8 kg/m2 31.8 k g/m2 MEDENT ([facility]) Heart rate 113 /min 113 /min [facility] ([facility]) Respiratory rate 18 /min 18 /min [facility] ( [facility]) Body temperature 98.7 [degF] 98.7 [degF] [facility] ([facility]) Oxygen saturation in Arterial blood by Pulse oximetry 113 % 113 % DEANN ([facility]) [place] body weight 145 [lb_av] 145 [lb_av] ESPERANZA Mayen ([facility])
[2021-09-03] MEDS ORDERED: PHENYLephrine 500MCG 5ML (100MCG/ML) SYRINGE As Ordered ONE (07:49)
--- NOTE | 2021-09-03 08:15 | ROOR ---
Patient Name: Marquita Turner Procedure Date: 09/03/2021 7:30 AM Date of : 1975 Age: 46 Room: [facility] Gender: Female Note Status: Finalized Procedure: Upper GI endoscopy Indications: Follow-up of esophageal reflux Providers: Gilles Hansen MD Referring MD: AXEL Bull Requesting Provider: Medicines: Monitored Anesthesia Care Complications: No immediate complications. Procedure: Pre-Anesthesia Assessment: - Prior to the procedure, a History and Physical was performed, and patient medications and allergies were reviewed. The patient is competent. The risks and benefits of the procedure and the sedation options and risks were discussed with the patient. All questions were answered and informed consent was obtained. Patient identification and proposed procedure were verified by the physician, the nurse and the hotel valet attendant in the procedure room. Mental Status Examination: alert and oriented. Airway Examination: normal oropharyngeal airway and neck mobility. Prophylactic Antibiotics: The patient does not require prophylactic antibiotics. Prior Anticoagulants: The patient has taken no previous anticoagulant or antiplatelet agents. ASA Grade Assessment: II - A patient with mild systemic disease. After reviewing the risks and benefits, the patient was deemed in satisfactory condition to undergo the procedure. The anesthesia plan was to use monitored anesthesia care (MAC). Immediately prior to administration of medications, the patient was re-assessed for adequacy to receive sedatives. The heart rate, respiratory rate, oxygen saturations, blood pressure, adequacy of pulmonary ventilation, and response to care were monitored throughout the procedure. The physical status of the patient was re-assessed after the procedure. The Endoscope was introduced through the mouth, and advanced to the second part of duodenum. The upper GI endoscopy was accomplished without difficulty. The patient tolerated the procedure well. Findings: The examined esophagus was normal. The Z-line was irregular and was found 40 cm from the incisors. There were several very short (1-1 1/2 cm) reddened chronic appearing tongues of tissue. Minimal inflammation was seen. The entire examined stomach was normal. The first portion of the duodenum and second portion of the duodenum were normal. Impression: - Normal esophagus. - Z-line irregular, 40 cm from the incisors. - Normal stomach. - Normal first portion of the duodenum and second portion of the duodenum. - No specimens collected. Recommendation: - Discharge patient to home. - Resume previous diet. - Continue present medications. - Repeat upper endoscopy in 5 years for surveillance. Procedure Code(s): --- Professional --- 00400, Esophagogastroduodenoscopy, flexible, transoral; diagnostic, including collection of specimen(s) by brushing or washing, when performed (separate procedure) Diagnosis Code(s): --- Professional --- K22.8, Other specified diseases of esophagus K21.9, Gastro-esophageal reflux disease without esophagitis CPT copyright 2019 [employer]. All rights reserved. The codes documented in this report are preliminary and upon system support analyst review may be revised to meet current compliance requirements. Gilles Hansen MD Gilles Hansen MD 09/03/2021 8:15:22 AM Electronically signed by Gilles Hansen MD Number of Addenda: 0 Note Initiated On: 09/03/2021 7:30 AM Estimated Blood Loss: Estimated blood loss: none.
--- NOTE | 2021-09-03 08:21 | ROOR ---
Patient Name: Marquita Turner Procedure Date: 09/03/2021 7:31 AM Date of : 1975 Age: 46 Room: [facility] Gender: Female Note Status: Finalized Procedure: Colonoscopy Indications: High risk colon cancer surveillance: Personal history of colonic polyps, Last colonoscopy: 2011 Providers: Gilles Hansen MD Referring MD: AXEL Bull Requesting Provider: Medicines: Monitored Anesthesia Care Complications: No immediate complications. Procedure: Pre-Anesthesia Assessment: - Prior to the procedure, a History and Physical was performed, and patient medications and allergies were reviewed. The patient is competent. The risks and benefits of the procedure and the sedation options and risks were discussed with the patient. All questions were answered and informed consent was obtained. Patient identification and proposed procedure were verified by the physician, the nurse and the weight tester in the procedure room. Mental Status Examination: alert and oriented. Airway Examination: normal oropharyngeal airway and neck mobility. Prophylactic Antibiotics: The patient does not require prophylactic antibiotics. Prior Anticoagulants: The patient has taken no previous anticoagulant or antiplatelet agents. ASA Grade Assessment: II - A patient with mild systemic disease. After reviewing the risks and benefits, the patient was deemed in satisfactory condition to undergo the procedure. The anesthesia plan was to use monitored anesthesia care (MAC). Immediately prior to administration of medications, the patient was re-assessed for adequacy to receive sedatives. The heart rate, respiratory rate, oxygen saturations, blood pressure, adequacy of pulmonary ventilation, and response to care were monitored throughout the procedure. The physical status of the patient was re-assessed after the procedure. The Colonoscope was introduced through the anus and advanced to the cecum, identified by appendiceal orifice and ileocecal valve. The colonoscopy was performed without difficulty. The patient tolerated the procedure well. The quality of the bowel preparation was good. Findings: Hemorrhoids were found on perianal exam. Patient had a small thrombosed hemorrhoid. The colon (entire examined portion) appeared normal. Impression: - Hemorrhoids found on perianal exam. - The entire examined colon is normal. - No specimens collected. Recommendation: - Discharge patient to home. - Resume previous diet. - Continue present medications. - Repeat colonoscopy in 5 years for surveillance. Procedure Code(s): --- Professional --- 16313, Colonoscopy, flexible; diagnostic, including collection of specimen(s) by brushing or washing, when performed (separate procedure) Diagnosis Code(s): --- Professional --- Z86.010, Personal history of colonic polyps K64.9, Unspecified hemorrhoids CPT copyright 2019 [employer]. All rights reserved. The codes documented in this report are preliminary and upon irish moss gatherer review may be revised to meet current compliance requirements. Gilles Hansen MD Gilles Hansen MD 09/03/2021 8:21:42 AM Electronically signed by Gilles Hansen MD Number of Addenda: 0 Note Initiated On: 09/03/2021 7:31 AM Estimated Blood Loss: Estimated blood loss: none.
[2021-09-03 08:30] VITALS: BP 94/54
== END 2021-09-03 08:45 | disposition home or self-care (01) ==
LOC: M OPP 06:41
PROVIDERS: ATTEND Surgery
DX: K64.9 Unspecified hemorrhoids (principal); K21.9 Gastro-esophageal reflux disease without esophagitis; Z86.010 Personal history of colon polyps
CPT/HCPCS: 43235; 45378; J2370; J3010

== ENCOUNTER → 2022-03-31 | Outpatient (REF) | payer OTHER ==
[~2022-03-31] MED LIST changes: -NS 1,000 ML IV ONE
[2022-03-31 17:48] LABS: APPEARANCE, URINE HAZY (CLEAR); BACTERIA, URINE AUTO 1+ (NEGATIVE); BILIRUBIN, URINE AUTO NEGATIVE (NEGATIVE); BLOOD, URINE BLOOD 1+ (NEGATIVE); COLOR, URINE AMBER (YELLOW); GLUCOSE, URINE (UA) AUTO NEGATIVE (NEGATIVE); KETONE, URINE AUTO TRACE mg/dL (NEGATIVE); LEUKOCYTE ESTERASE, URINE AUTO 3+ (NEGATIVE); MUCUS, URINE SMALL (NEGATIVE); NITRITE, URINE AUTO NEGATIVE (NEGATIVE); PROTEIN, URINE AUTO 1+ mg/dL (NEGATIVE); RBC, URINE AUTO 8 /HPF (0-3); SPECIFIC GRAVITY URINE AUTO 1.024 (1.002-1.035); SQUAMOUS EPITHELIAL CELL UR AU 1 /HPF (0-6); TRANSITIONAL EPITHELIAL AUTO 3 /HPF; UROBILINOGEN, URINE AUTO 0.2 mg/dL (0.0-2.0); WBC, URINE AUTO 157 /HPF (0-3)
== END ==
LOC: M LAB REF 17:24
PROVIDERS: ATTEND Nurse Practitioner Adult Health
DX: R30.0 Dysuria (principal)

== ENCOUNTER → 2022-10-22 | Outpatient (CLI) | payer BC | LOC: M WHC 10:39 | PROVIDERS: ATTEND Family Medicine | DX: K80.20 Calculus of gallbladder without cholecystitis without obstruction (principal) ==

== ENCOUNTER → 2023-10-31 | Outpatient (REF) | payer BC | LOC: M SFHCWAGY 11:59 | PROVIDERS: ATTEND Nurse Practitioner Family | DX: Z12.72 Encounter for screening for malignant neoplasm of vagina (principal) | CPT/HCPCS: 87624; G0123 ==

== ENCOUNTER → 2025-02-14 | Outpatient (CLI) | payer BC | LOC: M RAD 07:55 | PROVIDERS: ATTEND Physician Assistant | DX: E04.1 Nontoxic single thyroid nodule (principal); R47.02 Dysphasia; R49.0 Dysphonia ==

== ENCOUNTER → 2025-08-07 | Outpatient (CLI) | payer BC | LOC: M SLEEP HO 15:02 | PROVIDERS: ATTEND Physician Assistant | DX: G47.10 Hypersomnia, unspecified (principal) ==

== ENCOUNTER → 2025-09-23 | Outpatient (CLI) | payer BC | LOC: M WHC 09:04 | PROVIDERS: ATTEND Internal Medicine Endocrinology, Diabetes & Metabolism | DX: E03.9 Hypothyroidism, unspecified (principal); E04.2 Nontoxic multinodular goiter; Z78.0 Asymptomatic menopausal state; Z83.49 Family history of other endocrine, nutritional and metabolic diseases ==